=== PATIENT | male | born 1945 | race Caucasian/White ===

== ENCOUNTER 2017-07-21 10:06 | Inpatient (IN) | payer MEDICARE, BC ==
[~2017-07-21] VITALS: Ht 182.9 cm; Wt 68.9 kg
[~2017-07-21 10:06] MED LIST: ASPI-605 PO; LEVE750T4 PO
--- NOTE | 2017-07-21 10:20 | NUR ---
PT CAME IN FOR FEVER SINCE YESTERDAY-- AFEBRILE AT THIS TIME. NAD NOTED. PT AAOX3. VSS. SAFETY AND COMFORT MEASURES PROVIDED. WILL MONITOR.
[2017-07-21] MEDS: IV NS 0.9% 500 ML BAG IV ONE (11:15)
[2017-07-21 11:19] LABS: BASOPHILS # (AUTO) 0.1 /CMM (0.0-0.2); BASOPHILS % (AUTO) 1.2 % (0.0-2.0); HEMATOCRIT 41 % (39-51); HEMOGLOBIN 13.7 g/dL (13.5-17.5); LYMPHOCYTES # (AUTO) 0.5 /CMM (0.8-4.8); LYMPHOCYTES % (AUTO) 7.4 % (20.0-44.0); MEAN CORPUSCULAR HEMOGLOBIN 31 PG (26.0-33.0); MEAN CORPUSCULAR HGB CONC 33 g/dl (31.0-36.0); MEAN CORPUSCULAR VOLUME 94 fL (80-96); MONOCYTES # (AUTO) 0.5 /CMM (0.1-1.30); MONOCYTES % (AUTO) 7.2 % (2.0-12.0); NEUTROPHILS # (AUTO) 5.8 /CMM (1.8-8.9); NEUTROPHILS % (AUTO) 84.2 % (43.0-81.0); PLATELET COUNT (AUTO) 148 /CMM (150-450); RDW COEFFICIENT OF VARIATION 13.4 (11.5-15.0); RED BLOOD CELL COUNT(AUTO) 4.38 MIL/uL (4.5-6.0); WHITE BLOOD COUNT (AUTO) 6.9 K/uL (4.3-11.0)
[2017-07-21 11:21] LABS: APPEARANCE,URINE Slightly Cloudy (CLEAR); BILIRUBIN,URINE SMALL (NEGATIVE); BLOOD, URINE Small Ery/uL (NEGATIVE); KETONES,URINE Trace (NEGATIVE); LEUKOCYTE ESTERASE ,URINE Negative (NEGATIVE); NITRITE, URINE Negative (NEGATIVE); PROTEIN,URINE >=300 mg/dl (NEGATIVE); UGLUCOSE Negative (NEGATIVE)
[2017-07-21 11:22] LABS: COLOR,URINE Dark Yellow (YELLOW)
--- NOTE | 2017-07-21 11:22 | NUR ---
IV ACCESS STARTED. BLOOD DRAWN FOR LABS. PT MEDICATED ORDERED.
[2017-07-21 11:30] LABS: BACTERIA,URINE None seen /HPF (None Seen); SQUAMOUS EPITHELIAL CELL,UR Few /HPF (None Seen)
[2017-07-21 11:31] LABS: INR 1.08 (0.87-1.13); PROTHROMBIN TIME 11.2 SECS (9.5-12.7)
[2017-07-21 11:31] LABS: HYALINE CASTS, URINE Few /LPF (None Seen); MUCUS,URINE Few /LPF (None Seen)
[2017-07-21 11:35] LABS: ALANINE AMINOTRANSFERASE 23 U/L (12-78); ALBUMIN 3.1 g/dL (3.4-5.0); ALKALINE PHOSPHATASE 114 U/L (46-116); ASPARTATE AMINOTRANSFERASE 69 U/L (15-37); BILIRUBIN,DIRECT 0.1 mg/dL (0.0-0.2); BILIRUBIN,TOTAL 0.4 mg/dL (0.2-1.0); CALCIUM, SERUM 8.4 mg/dL (8.5-10.1); CARBON DIOXIDE 26 mmol/L (21-32); CHLORIDE 103 mmol/L (98-107); CREATININE 1.2 mg/dL (0.6-1.3); GLUCOSE 128 mg/dL (74-106); POTASSIUM 3.9 mmol/L (3.5-5.1); SODIUM SERUM 137 mmol/L (136-145); TOTAL PROTEIN, SERUM 6.8 g/dL (6.4-8.2); UREA NITROGEN, BLOOD 25 mg/dL (7-18)
[2017-07-21 11:37] LABS: TROPONIN I < 0.017 ng/mL (0.00-0.056)
--- NOTE | 2017-07-21 11:43 | NUR ---
CALLED DR COLON ANSWER SERVICE, ON THE PHONE WITH DR CELESTIN
--- NOTE | 2017-07-21 11:45 | NUR ---
DR MELINDA COLON
--- NOTE | 2017-07-21 12:37 | NUR ---
AT FOR POC.
[2017-07-21] MEDS ORDERED: IV NS 0.9% 500 ML BAG IV ONE (13:00)
--- NOTE | 2017-07-21 13:58 | NUR ---
CALLED [employer] CRISIS WORKER WAS PAGED.
[2017-07-21] MEDS ORDERED: CEFEPIME 1 GM VIAL IV ONE (14:00)
--- NOTE | 2017-07-21 14:21 | NUR ---
MRSA SWAB COLLECTED & SENT TO LAB
--- NOTE | 2017-07-21 14:27 | NUR ---
REPORT GIVEN TO CAROL THAYER FOR TELE 120.
[2017-07-21] MEDS ORDERED: ONDANSETRON HCL/PF 4 MG/2 ML VIAL IVP PRN (14:30)
[2017-07-21] MEDS ORDERED: MAGNESIUM HYDROXIDE 30 ML UDC PO PRN (14:30)
[2017-07-21] MEDS ORDERED: ZOLPIDEM TARTRATE 5 MG TABLET PO PRN (14:30)
[2017-07-21] MEDS ORDERED: Z GUARD REMEDY 2 OZ OINT TP PRN (14:30)
[2017-07-21] MEDS ORDERED: ACETAMINOPHEN 325 MG TABLET PO PRN (14:30)
[2017-07-21] MEDS ORDERED: MAG HYDROX/AL HYDROX/SIMETH 30 ML UDC PO PRN (14:30)
[2017-07-21] MEDS ORDERED: HYDROCODONE/APAP 5/325MG 1 EACH TABLET PO PRN (14:30)
[2017-07-21 14:45] VITALS: BP 121/61
--- NOTE | 2017-07-21 14:45 | NUR ---
RN NOTES RECEIVED PT ON BED, A/Ox4, RESPIRATION EVEN AND UNLABORED, ON RA , NO SOB NOTED, LON ANY DISTRESS AT THIS TIME, T =97.9, ON TELE SR WITH PAC'S ,VSS STABLE, NO SKIN ISSUE NOTED, L HAND IV SITE #20 CDI, SR UP x3, CALL LIGHT WITHIN EASY REACH. CONTINUE TO MONITOR PT CLOSELY AND NOTIFY MD FOR ANY SIGNIFICANT CHANGES.
[2017-07-21] MEDS ORDERED: DABR75CA PO (14:46)
[2017-07-21] MEDS ORDERED: TRAM2TAB PO ×2 (14:46→16:09)
[2017-07-21] MEDS ORDERED: CEFEPIME 2 GM in IV D5W 100 ML IV ONE (15:00)
[2017-07-21] MEDS: IV NS 0.9% 1,000 ML IV PRN (15:42)
[2017-07-21 16:00] VITALS: BP 121/61
--- NOTE | 2017-07-21 16:06 | NUR ---
RN NOTES PT HOME MEDS TAKEN TO PHARMACY .
[2017-07-21] MEDS ORDERED: TRAMETINIB DIMETHYL SULFOXIDE 2 MG PO SCH (17:00)
[2017-07-21] MEDS ORDERED: DABRAFENIB PO SCH (17:00)
[2017-07-21] MEDS: DABRAFENIB PO SCH (17:37)
--- NOTE | 2017-07-21 18:41 | NUR ---
RN NOTES PT REMAINS STABLE, LON ANY DISTRESS, WILL ENDORSE TO FISHER DIVING RN FOR CONTINUITY OF CARE .
[2017-07-21] MEDS: LEVETIRACETAM (250 MG) 250 MG TABLET PO SCH (19:27)
[2017-07-21 20:00] VITALS: BP 131/47
[2017-07-21] MEDS ORDERED: CEFEPIME 1 GM VIAL IM SCH (21:00)
[2017-07-21] MEDS: MEKINIST 2 MG PO SCH (22:35)
[2017-07-22] VITALS (7 sets, daily range): BP systolic 128–138; BP diastolic 61–82
[2017-07-22] MEDS: DABRAFENIB PO SCH ×2 (04:03→16:30)
[2017-07-22] MEDS: IV NS 0.9% 1,000 ML IV PRN (06:32)
--- NOTE | 2017-07-22 06:39 | NUR ---
RN NOTES 0630 No signs of distress during the shift. Ambulates to BR ad savita. Continue on IVF. Due meds tolerated well. Seizure precaution observed. No seizure activity this shift. Voiding well with BM x 2 this shift. Call light within reach
--- NOTE | 2017-07-22 07:00 | NUR ---
RN NOTES RECEIVED PT ON BED, A/Ox4, RESPIRATION EVEN AND UNLABORED, NO DISTRESS NOTED, ON TELE SR , PT OUT OF BED TO BR WITHOUT ANY ASSIST , L HAND IV G 20 SITE CDI WITH NS AT 75CC/HR RUNNING , CALL LIGHT WITHIN EASY REACH, CONTINUE TO MONITOR PT CLOSELY AND NOTIFY MD FOR ANY SIGNIFICANT CHANGES.
[2017-07-22 07:20] LABS: BASOPHILS % (AUTO) 0.8 % (0.0-2.0); EOSINOPHILS % (AUTO) 0.4 % (0.0-6.0); HEMATOCRIT 33 % (39-51); HEMOGLOBIN 11.2 g/dL (13.5-17.5); LYMPHOCYTES # (AUTO) 1.4 /CMM (0.8-4.8); LYMPHOCYTES % (AUTO) 34.2 % (20.0-44.0); MEAN CORPUSCULAR HEMOGLOBIN 32 PG (26.0-33.0); MEAN CORPUSCULAR HGB CONC 34 g/dl (31.0-36.0); MEAN CORPUSCULAR VOLUME 94 fL (80-96); MONOCYTES # (AUTO) 0.5 /CMM (0.1-1.30); MONOCYTES % (AUTO) 13.2 % (2.0-12.0); NEUTROPHILS # (AUTO) 2.1 /CMM (1.8-8.9); NEUTROPHILS % (AUTO) 51.4 % (43.0-81.0); PLATELET COUNT (AUTO) 119 /CMM (150-450); RDW COEFFICIENT OF VARIATION 14.7 (11.5-15.0); RED BLOOD CELL COUNT(AUTO) 3.53 MIL/uL (4.5-6.0); WHITE BLOOD COUNT (AUTO) 4.2 K/uL (4.3-11.0)
[2017-07-22] MEDS: PANTOPRAZOLE 40 MG TABLET.DR PO SCH (07:44)
[2017-07-22] MEDS: LEVETIRACETAM (250 MG) 250 MG TABLET PO SCH ×2 (07:44→19:54)
[2017-07-22 08:02] LABS: CALCIUM, SERUM 7.9 mg/dL (8.5-10.1); CARBON DIOXIDE 25 mmol/L (21-32); CHLORIDE 110 mmol/L (98-107); CREATININE 0.9 mg/dL (0.6-1.3); GLUCOSE 99 mg/dL (74-106); MAGNESIUM 1.8 mg/dL (1.8-2.4); PHOSPHORUS 2.7 mg/dL (2.5-4.9); POTASSIUM 3.9 mmol/L (3.5-5.1); SODIUM SERUM 143 mmol/L (136-145); UREA NITROGEN, BLOOD 19 mg/dL (7-18)
[2017-07-22] MEDS ORDERED: CEFEPIME 1 GM in IV D5W 50 ML IV SCH (15:00)
--- NOTE | 2017-07-22 16:30 | NUR ---
RN NOTES PT STATED TOOK HIS OWN TAFINLAR FROM HOME . ADVISE PT NOT TO TAKE ANY MEDS FROM HOME ON HIS OWN . PT AND HIS VERBALIZED UNDERSTANDING .
--- NOTE | 2017-07-22 16:50 | NUR ---
RN NOTES DR CRUZ PAGED REGARDING PROCALCITONIN RESULTS .
--- NOTE | 2017-07-22 18:00 | NUR ---
RN NOTES PT STABLE , OUT OF BED TO BATHROOM , NS AT 75CC/HR RUNNING VIA L HAND IV SITE, CALL LIGHT WITHIN EASY REACH, WILL ENDORSE TO SYSTEM ENGINEER NURSE FOR CONTINUITY OF CARE
--- NOTE | 2017-07-22 19:25 | NUR ---
EXERCISE PHYSIOLOGIST CERTIFIED INITIAL NOTE PT RECEIVED IN NO ACUTE DISTRESS. ON TELE WITH SR 81. A/O X4 ABLE TO MAKE NEEDS KNOWN AND ABLE TO AMBULATE TO THE BATHROOM. PT HAS LEFT HAND 20G THAT IS LEAKING SO PAUSED FLUIDS FOR NOW. WILL START NEW LINE. COMFORT AND SAFETY MEASURES TO BE ENSURED DURING THE SHIFT. WILL CONTINUE TO MONITOR FOR CHANGES.
[2017-07-22] MEDS: MEKINIST 2 MG PO SCH (21:34)
[2017-07-23] VITALS: BP 140/84
[2017-07-23 00:52] VITALS: BP 140/84
[2017-07-23 04:00] VITALS: BP 148/81
[2017-07-23] MEDS: DABRAFENIB PO SCH (04:22)
[2017-07-23 04:30] VITALS: BP 148/81
[2017-07-23] MEDS: IV NS 0.9% 1,000 ML IV PRN (05:55)
[2017-07-23 07:05] LABS: BASOPHILS # (AUTO) 0.1 /CMM (0.0-0.2); BASOPHILS % (AUTO) 1.3 % (0.0-2.0); EOSINOPHILS # (AUTO) 0.1 /CMM (0.0-0.7); EOSINOPHILS % (AUTO) 1.6 % (0.0-6.0); HEMATOCRIT 37 % (39-51); HEMOGLOBIN 12.5 g/dL (13.5-17.5); LYMPHOCYTES # (AUTO) 1.9 /CMM (0.8-4.8); LYMPHOCYTES % (AUTO) 46.6 % (20.0-44.0); MEAN CORPUSCULAR HEMOGLOBIN 32 PG (26.0-33.0); MEAN CORPUSCULAR HGB CONC 34 g/dl (31.0-36.0); MEAN CORPUSCULAR VOLUME 94 fL (80-96); MONOCYTES # (AUTO) 0.6 /CMM (0.1-1.30); MONOCYTES % (AUTO) 15.3 % (2.0-12.0); NEUTROPHILS # (AUTO) 1.4 /CMM (1.8-8.9); NEUTROPHILS % (AUTO) 35.2 % (43.0-81.0); PLATELET COUNT (AUTO) 129 /CMM (150-450); RDW COEFFICIENT OF VARIATION 14.4 (11.5-15.0); RED BLOOD CELL COUNT(AUTO) 3.96 MIL/uL (4.5-6.0)
[2017-07-23 07:10] LABS: THYROID STIMULATING HORMONE 2.497 uIU/mL (0.358-3.74)
--- NOTE | 2017-07-23 07:30 | NUR ---
PT RECEIVED RESTING COMFORTABLY IN BED. NO S/S OR C/O PAIN OR DISTRESS NOTED. SIDE RAILS UP X2, CALL LIGHT LEFT WITHIN REACH. WILL CONTINUE PLAN OF CARE.
[2017-07-23 08:00] VITALS: BP 146/62
[2017-07-23] MEDS: LEVETIRACETAM (250 MG) 250 MG TABLET PO SCH (08:18)
[2017-07-23] MEDS: PANTOPRAZOLE 40 MG TABLET.DR PO SCH (08:18)
[2017-07-23 10:02] LABS: BAND % (MANUAL) 2 % (0.0-5.0); EOSINOPHILS % (MANUAL) 1 % (0-4); LYMPHOCYTES % (MANUAL) 49 % (16-48); MONOCYTES % (MANUAL) 11 % (0-11.0); NEUTROPHILS % (MANUAL) 37 (42-76)
--- NOTE | 2017-07-23 13:00 | NUR ---
DISCHARGE INSTRUCTIONS GIVEN ORDERED. ENCOURAGED TO FOLLOW UP WITH PMD INSTRUCTED. ALL QUESTIONS AND CONCERNS ADDRESSED. PATIENT VERBALIZED UNDERSTANDING. MEDICATION RECONCILIATION FORM COMPLETED AND COPY GIVEN TO PATIENT. HOME MEDICATIONS HELD IN PHARMACY RETURNED TO PATIENT. IV REMOVED WITH CATHETER INTACT, PRESSURE DRESSING APPLIED. PATIENT TAKEN TO VEHICLE VIA WHEELCHAIR WITH ALL PERSONAL BELONGINGS, ACCOMPANIED BY STAFF AND FAMILY MEMBER. NO DISTRESS NOTED AT TIME OF DEPARTURE.
== END 2017-07-23 13:16 | disposition home or self-care (01) | DRG 640 ==
LOC: ER 10:08 → TELE1 14:17 → MEDSG1 07-23 09:04
PROVIDERS: ADMIT Internal Medicine; ATTEND Internal Medicine
DX: E86.0 Dehydration (principal); D61.810 Antineoplastic chemotherapy induced pancytopenia; R65.10 Systemic inflammatory response syndrome (SIRS) of non-infectious origin without acute organ dysfunction; C78.89 Secondary malignant neoplasm of other digestive organs; G40.909 Epilepsy, unspecified, not intractable, without status epilepticus; I10 Essential (primary) hypertension; K21.9 Gastro-esophageal reflux disease without esophagitis; E78.5 Hyperlipidemia, unspecified; Z85.820 Personal history of malignant melanoma of skin; T45.1X5A Adverse effect of antineoplastic and immunosuppressive drugs, initial encounter; Y92.009 Unspecified place in unspecified non-institutional (private) residence as the place of occurrence of the external cause; Z79.899 Other long term (current) drug therapy
CPT/HCPCS: 36415; 71010-TC; 80048-TC; 80076-TC; 81000-TC; 82746; 83540-TC; 83605-TC; 83735-TC; 84100-TC; 84439-TC; 84443-TC; 84484-TC; 85025-TC; 85730-TC; 87040-TC; 87081-TC; A4606; J0692; J7030; J7040; J7060; Z7610

== ENCOUNTER 2018-04-21 09:42 | Inpatient (IN) | payer MEDICARE, BC ==
[~2018-04-21] VITALS: Ht 165.1 cm; Wt 83.9 kg
[~2018-04-21 09:42] MED LIST changes: -ASPI-605 PO; +DABR75CA PO; +TRAM2TAB PO
--- NOTE | 2018-04-21 09:45 | NUR ---
[id number] FROM HOME S/P SLIPPED AND FELL WHILE GOING DOWN THE STAIRS, +HEAD LAC, NO KO. A/OX 4, BREATHING EVEN AND UNLABORED. HEAD WRAPPED WITH GAUZE WITH MODERATE AMOUNT OF BLEEDING NOTED. NO TRAUMA, VSS. SAFETY AND COMFORT MEASURES IN PLACE. AWAITING MD ORDERS.
[2018-04-21] MEDS ORDERED: TDAP [DIPH/PERTUSSIS/TET] 0.5 ML VIAL IM ONE ×2 (09:59→10:00)
--- NOTE | 2018-04-21 10:04 | NUR ---
patient taken to ct via stretcher.
--- NOTE | 2018-04-21 10:13 | NUR ---
PATIENT RETURNED FROM CT IN STABLE CONDITION.
--- NOTE | 2018-04-21 10:20 | NUR ---
process development technician at bedside.
[2018-04-21 10:33] LABS: BASOPHILS # (AUTO) 0.1 /CMM (0.0-0.2); BASOPHILS % (AUTO) 1.3 % (0.0-2.0); EOSINOPHILS % (AUTO) 0.6 % (0.0-6.0); HEMATOCRIT 35 % (39-51); HEMOGLOBIN 12.2 g/dL (13.5-17.5); LYMPHOCYTES # (AUTO) 0.7 /CMM (0.8-4.8); LYMPHOCYTES % (AUTO) 16.6 % (20.0-44.0); MEAN CORPUSCULAR HGB CONC 35 g/dl (31.0-36.0); MEAN CORPUSCULAR VOLUME 96 fL (80-96); MONOCYTES # (AUTO) 0.4 /CMM (0.1-1.30); MONOCYTES % (AUTO) 8.3 % (2.0-12.0); NEUTROPHILS # (AUTO) 3.2 /CMM (1.8-8.9); NEUTROPHILS % (AUTO) 73.2 % (43.0-81.0); PLATELET COUNT (AUTO) 218 /CMM (150-450); RDW COEFFICIENT OF VARIATION 12.9 (11.5-15.0); RED BLOOD CELL COUNT(AUTO) 3.66 MIL/uL (4.5-6.0); WHITE BLOOD COUNT (AUTO) 4.4 K/uL (4.3-11.0)
[2018-04-21 10:42] LABS: CALCIUM, SERUM 9.1 mg/dL (8.5-10.1); CARBON DIOXIDE 27 mmol/L (21-32); CHLORIDE 108 mmol/L (98-107); CREATININE 0.8 mg/dL (0.6-1.3); GLUCOSE 122 mg/dL (74-106); POTASSIUM 3.8 mmol/L (3.5-5.1); SODIUM SERUM 141 mmol/L (136-145); UREA NITROGEN, BLOOD 22 mg/dL (7-18)
[2018-04-21 10:46] LABS: INR 1.07 (0.85-1.15)
--- NOTE | 2018-04-21 10:52 | NUR ---
patient taken back to ct via stretcher.
--- NOTE | 2018-04-21 11:00 | NUR ---
PATIENT RETURNED FROM CT IN STABLE CONDITION.
[2018-04-21] MEDS ORDERED: LIDOCAINE 1%-EPI 1:100,000 50 ML VIAL IJ ONE (11:30)
[2018-04-21] MEDS ORDERED: ONDANSETRON HCL/PF - ER 4 MG/2 ML VIAL IV ONE (11:30)
[2018-04-21] MEDS ORDERED: LIDOCAINE 1%-EPI 1:100,000 20 ML VIAL ONE (11:30)
[2018-04-21] MEDS ORDERED: MORPHINE SULFATE INJ 2 MG/ML DISP.SYRIN IV ONE ×2 (11:30→12:30)
[2018-04-21] MEDS ORDERED: MORPHINE SULFATE INJ 4 MG/ML DISP.SYRIN ONE (11:33)
[2018-04-21] MEDS ORDERED: ONDANSETRON HCL/PF 4 MG/2 ML VIAL ONE (11:33)
--- NOTE | 2018-04-21 11:40 | NUR ---
NEW IV STARTED ON LFA, 20G. PATIENT MEDICATED PER MD ORDERS.
--- NOTE | 2018-04-21 11:41 | NUR ---
CALLED LILLIE NOBLES, WEB COMMUNICATIONS SPECIALIST WAS PAGED.
--- NOTE | 2018-04-21 11:47 | NUR ---
CALLED [employer] FACILITIES MAINTENANCE TECHNICIAN WAS PAGED.
--- NOTE | 2018-04-21 11:50 | NUR ---
PA AT BEDSIDE FOR FLORINA TO RIGHT SIDED HEAD LAC.
--- NOTE | 2018-04-21 12:01 | NUR ---
CALLED DR WESLEY'S OFFICE, WAS PAGED.
[2018-04-21] MEDS ORDERED: LISI30TA4 PO (12:15)
--- NOTE | 2018-04-21 12:25 | NUR ---
CALLED [facility] SPOKE WITH SHILPI, HE SAID HE IS WORKING ON A LIFE THREATNING CASE AND WILL CALL ME BACK.
[2018-04-21] MEDS ORDERED: HYDROMORPHONE INJ 2 MG/ML DISP.SYRIN ONE (12:49)
[2018-04-21] MEDS ORDERED: HYDROMORPHONE 1 MG/1 ML DISP.SYRIN IV ONE (13:00)
--- NOTE | 2018-04-21 13:41 | NUR ---
CALLED [facility], SPOKE WITH SHILPI HE SAID HE IS STILL TIED UP WITH THE LIFE THREATNING CASE AND WILL CALL ME BACK WHEN HE IS AVAILABLE. HE ALSO MENTIONED HE SPOKE TO DR WESLEY REGARDING THE TX.
--- NOTE | 2018-04-21 14:19 | NUR ---
SHILPI FROM [facility] CALLED BACK, FAXED OVER A FACESHEET.
--- NOTE | 2018-04-21 16:45 | NUR ---
CALLED [facility] SPOKE WITH SHILPI, HE SAID THEY DONT HAVE ANY BEDS ABAILABLE.
--- NOTE | 2018-04-21 16:50 | NUR ---
CALLED [employer]ON SIGN WORKER WAS PAGED.
--- NOTE | 2018-04-21 17:28 | NUR ---
INFORMED HINA YAP FROM CASE MANAGEMENT TO FOLLOW THROUGH WITH TRANSFER TO [facility] EVEN THOUGH WE ARE ADMITTING PATIENT AT THIS TIME
--- NOTE | 2018-04-21 18:02 | NUR ---
16 FR horn catheter inserted per sterile protocOl. Immediate output 850 ML of urine, yellow and clear.
--- NOTE | 2018-04-21 18:29 | NUR ---
REPORT GIVEN TO PEDRO THAYER FOR RENETTA UPON ADMISSION.
--- NOTE | 2018-04-21 18:36 | NUR ---
PATIENT TRANSPORTED TO [facility] VIA STRETCHER. RNPEDRO TO PROVIDE RENETTA.
--- NOTE | 2018-04-21 19:35 | NUR ---
MS RN INITIAL NOTE PT WAS ADMITTED TO THE FLOOR AT 1850. PT IS A/O X3, FORGETFUL AT TIMES. NO SIGNS OF SOB OR DISTRESS, BREATHING EVENLY AND UNLABORED ON 2L NC. PT IS S/P FALL, HAS A HEAD LACERATION WITH FLORINA AND PT HIP FRACTURE. ONLY BRUISING NOTED ON RIGHT HIP AND PT HAS PAIN ON MOVEMENT. F/C IS INTACT AND DRAINING. IV ACCESS IS INTACT AND PATENT. BED IS IN LOW AND LOCKED POSITION, BED ALARM IS ON. CALL LIGHT IS WITHIN REACH. WILL CONTINUE TO MONITOR PT.
[2018-04-21 20:00] VITALS: BP 134/76
[2018-04-21] MEDS ORDERED: ACETAMINOPHEN 325 MG TABLET PO PRN (20:30)
[2018-04-21] MEDS ORDERED: Z GUARD REMEDY 2 OZ OINT TP PRN (20:30)
[2018-04-21] MEDS ORDERED: HYDROMORPHONE INJ 2 MG/ML DISP.SYRIN IV PRN (20:30)
[2018-04-21] MEDS ORDERED: MAG HYDROX/AL HYDROX/SIMETH 30 ML UDC PO PRN (20:30)
[2018-04-21] MEDS ORDERED: ONDANSETRON HCL/PF 4 MG/2 ML VIAL IVP PRN (20:30)
[2018-04-21] MEDS ORDERED: MAGNESIUM HYDROXIDE 30 ML UDC PO PRN (20:30)
[2018-04-21] MEDS ORDERED: HYDROCODONE/APAP 5/325MG 1 EACH TABLET PO PRN (20:30)
[2018-04-21] MEDS ORDERED: ZOLPIDEM TARTRATE 5 MG TABLET PO PRN (20:30)
[2018-04-21 21:00] VITALS: BP 134/76
[2018-04-21] MEDS: LEVETIRACETAM (250 MG) 250 MG TABLET PO SCH (21:25)
--- NOTE | 2018-04-22 06:18 | NUR ---
MS RN CLOSING NOTE PT IS IN BED SLEEPING, EASILY AROUSED. NO SIGNS OF SOB OR DISTRESS, BREATHING EVENLY AND UNLABORED ON 2L NC. IV ACCESS IS INTACT AND PATENT. RIVERA IS INTACT AND DRAINING. DENIES PAIN AT THIS TIME. NO ACUTE CHANGES THROUGHOUT THE SHIFT. ALL NEEDS WERE ANTICIPATED AND MET. BED IS IN LOW AND LOCKED POSITION, CALL LIGHT WITHIN REACH. WILL ENDORSE TO DAYSHIFT
[2018-04-22 07:27] LABS: BASOPHILS % (AUTO) 0.4 % (0.0-2.0); EOSINOPHILS % (AUTO) 0.7 % (0.0-6.0); HEMATOCRIT 34 % (39-51); HEMOGLOBIN 11.4 g/dL (13.5-17.5); LYMPHOCYTES # (AUTO) 0.6 /CMM (0.8-4.8); LYMPHOCYTES % (AUTO) 8.4 % (20.0-44.0); MEAN CORPUSCULAR HGB CONC 34 g/dl (31.0-36.0); MEAN CORPUSCULAR VOLUME 99 fL (80-96); MONOCYTES # (AUTO) 0.8 /CMM (0.1-1.30); MONOCYTES % (AUTO) 11.4 % (2.0-12.0); NEUTROPHILS # (AUTO) 5.5 /CMM (1.8-8.9); NEUTROPHILS % (AUTO) 79.1 % (43.0-81.0); PLATELET COUNT (AUTO) 161 /CMM (150-450); RDW COEFFICIENT OF VARIATION 14.1 (11.5-15.0); RED BLOOD CELL COUNT(AUTO) 3.39 MIL/uL (4.5-6.0); WHITE BLOOD COUNT (AUTO) 6.9 K/uL (4.3-11.0)
--- NOTE | 2018-04-22 07:30 | NUR ---
RN MS OPENING NOTES RECEIVED PATIENT IN BED AWAKE, IN STABLE CONDITION. ALERT AND ORIENTED X2-3, VERBALLY RESPONSIVE, ABLE TO MAKE NEEDS KNOWN. BREATHING EVEN AND UNLABORED. ON ROOM AIR - TOLERATING WELL. SKIN DRY AND WARM TO TOUCH. IV ON LEFT FA #22 INTACT AND PATENT. RIVERA CATH INTACT AND DRAINING WELL. CURRENTLY WITH COMPLAINTS OF PAIN ON THE RIGHT HIP, 4/10, BUT DOES NOT NEED PAIN MEDICATION AT THE MOMENT. CALL LIGHT WITHIN REACH. BED ON LOWEST LOCKED POSITION. WILL CONTINUE TO MONITOR.
[2018-04-22 07:32] LABS: ALANINE AMINOTRANSFERASE 27 U/L (12-78); ALBUMIN 3.4 g/dL (3.4-5.0); ALKALINE PHOSPHATASE 87 U/L (46-116); ASPARTATE AMINOTRANSFERASE 23 U/L (15-37); BILIRUBIN,TOTAL 1.3 mg/dL (0.2-1.0); CALCIUM, SERUM 8.2 mg/dL (8.5-10.1); CARBON DIOXIDE 25 mmol/L (21-32); CHLORIDE 103 mmol/L (98-107); CHOLESTEROL 138 mg/dL (<200); CREATININE 0.8 mg/dL (0.6-1.3); GLUCOSE 113 mg/dL (74-106); HDL CHOLESTEROL 67 mg/dL (40-60); LDL 70 mg/dL (0-99); PHOSPHORUS 3.2 mg/dL (2.5-4.9); POTASSIUM 3.9 mmol/L (3.5-5.1); SODIUM SERUM 137 mmol/L (136-145); TOTAL PROTEIN, SERUM 6.5 g/dL (6.4-8.2); TRIGLYCERIDES 24 mg/dL (30-150); UREA NITROGEN, BLOOD 18 mg/dL (7-18)
[2018-04-22 08:00] VITALS: BP 134/65
[2018-04-22] MEDS ORDERED: LISINOPRIL (10MG) 10 MG TABLET PO SCH (09:00)
[2018-04-22] MEDS: LEVETIRACETAM (250 MG) 250 MG TABLET PO SCH (09:49)
[2018-04-22 16:00] VITALS: BP 118/63
--- NOTE | 2018-04-22 19:08 | NUR ---
RN MS NOTES PT IN BED, AWAKE, ALERT AND ORIENTED, NO BLEEDING NOTED AT SCALP LACERATION, FLORINA INTACT, SAID HE HAS PAIN ON HIS RIGHT HIP ON MOVEMENT BUT DOES NOT WANT ANY PAIN MEDICATION AT THIS TIME, DISCHARGE INSTRUCTIONS PROVIDED TO PT, VERBALIZED UNDERSTANDING, REPORT GIVEN TO SHASHI OF [facility], PT'S KATHY INFORMED OF TRANSFER, BELONGINGS ACCOUNTED FOR, AWAITING AMBULANCE PORT CAPTAIN.
--- NOTE | 2018-04-22 19:09 | NUR ---
RN MS CLOSING NOTES PATIENT IN BED AWAKE, IN STABLE CONDITION. ALERT AND ORIENTED X2-3, VERBALLY RESPONSIVE, ABLE TO MAKE NEEDS KNOWN. BREATHING EVEN AND UNLABORED. ON ROOM AIR - TOLERATING WELL. SKIN DRY AND WARM TO TOUCH. IV ON LEFT FA #22 INTACT AND PATENT. RIVERA CATH INTACT AND DRAINING WELL. CURRENTLY WITH NO COMPLAINTS OF PAIN OR DISCOMFORT. PATIENT FOR TRANSFER TO [facility] FOR RIGHT HIP SURGERY. PATIENT AND MADE AWARE. ANTICIPATED MOTORCYCLE REPAIR SHOP SUPERVISOR TIME IS 8:00PM. ALL OTHER NEEDS ATTENDED TO. CALL LIGHT WITHIN REACH. BED ON LOWEST LOCKED POSITION. WILL ENDORSE TO ONCOMING NURSE FOR CONTINUITY OF CARE.
[2018-04-22 19:30] VITALS: BP 149/72
--- NOTE | 2018-04-22 19:30 | NUR ---
RN NOTES RECEIVED PATIENT IN BED AWAKE, AO X 2-3, FORGETFUL, ABLE TO MAKE NEEDS KNOWN. NO ACUTE DISTRESS NOTED. DENIES ANY PAIN AT THIS TIME. IV SITE PATENT, INTACT; FLUSHED. RIVERA CATH PATENT, INTACT; DRAINING CLEAR YELLOW URINE. HIP PRECAUTIONS MAINTAINED. SAFETY REMINDERS GIVEN. ON LOW BED WITH BILATERAL UPPER SIDE RAILS UP. CALL WEEKS WITHIN EASY REACH. WILL CONTINUE TO MONITOR.
--- NOTE | 2018-04-22 20:37 | NUR ---
RN NOTES PATIENT PICKED UP BY [facility] FOR TRANSFER TO [facility]. PATIENT AWARE OF TRANSFER. PATIENT IN STABLE CONDITION; DENIES ANY PAIN AT THIS TIME. BELONGING PACKED AND GIVEN TO PATIENT. DISCHARGE PAPERS AND REPORT GIVEN TO AMBULANCE STAFF.
== END 2018-04-22 20:37 | disposition short-term general hospital (02) | DRG 536 ==
LOC: ER 09:42 → MED 18:17
PROVIDERS: ADMIT Internal Medicine; ATTEND Internal Medicine
DX: S72.001A Fracture of unspecified part of neck of right femur, initial encounter for closed fracture (principal); C79.9 Secondary malignant neoplasm of unspecified site; W01.0XXA Fall on same level from slipping, tripping and stumbling without subsequent striking against object, initial encounter; C43.9 Malignant melanoma of skin, unspecified; K21.9 Gastro-esophageal reflux disease without esophagitis; Y92.89 Other specified places as the place of occurrence of the external cause; D63.8 Anemia in other chronic diseases classified elsewhere; I10 Essential (primary) hypertension; E78.5 Hyperlipidemia, unspecified; Z79.899 Other long term (current) drug therapy; Y93.9 Activity, unspecified; R56.9 Unspecified convulsions; S72.124A Nondisplaced fracture of lesser trochanter of right femur, initial encounter for closed fracture; S01.01XA Laceration without foreign body of scalp, initial encounter
CPT/HCPCS: 36415; 70450-TC; 71045-TC; 72170-TC; 73700-TC; 80048-TC; 80053-TC; 80061-TC; 83735-TC; 84100-TC; 84484-TC; 85025-TC; 85730-TC; 87081-TC; 90715; 93307-TC; A4606; A6402; J1170; J2270; J2405; J3490; Z7610

== ENCOUNTER 2019-01-24 15:31 | Inpatient (IN) | payer MEDICARE, BC ==
[~2019-01-24] VITALS: Ht 180.3 cm; Wt 71.7 kg
[~2019-01-24 15:31] MED LIST changes: -DABR75CA PO; +LISI30TA4 PO; -TRAM2TAB PO
--- NOTE | 2019-01-24 15:45 | NUR ---
PATIENT [id number] FROM HOME FOR GENERALIZED WEAKNESS, PER REPORT HYPOTENSIVE. PATIENT AAO X 3, DENIES ANY PAIN AT THIS TIME. KATHY AT BEDSIDE
--- NOTE | 2019-01-24 15:50 | NUR ---
REJI CATH,R UPPER CW ACCESSED WITH 20 G BUTLER NEEDLE ASEPTICALLY,BLOOD DRAWN FOR LABS. FLUSHED AFTER DRAWING BLOOD.TOLERATED WELL.
[2019-01-24] MEDS ORDERED: IV NS 0.9% 1,000 ML BAG IV ONE (16:00)
--- NOTE | 2019-01-24 16:00 | NUR ---
DR. HAYES AT BEDSIDE
[2019-01-24 16:04] LABS: BASOPHILS # (AUTO) 0.1 /CMM (0.0-0.2); BASOPHILS % (AUTO) 0.4 % (0.0-2.0); HEMATOCRIT 28 % (39-51); HEMOGLOBIN 9.2 g/dL (13.5-17.5); LYMPHOCYTES # (AUTO) 0.6 /CMM (0.8-4.8); LYMPHOCYTES % (AUTO) 2.9 % (20.0-44.0); MEAN CORPUSCULAR HGB CONC 33 g/dl (31.0-36.0); MEAN CORPUSCULAR VOLUME 98 fL (80-96); MONOCYTES # (AUTO) 0.6 /CMM (0.1-1.30); MONOCYTES % (AUTO) 2.8 % (2.0-12.0); NEUTROPHILS # (AUTO) 19.2 /CMM (1.8-8.9); NEUTROPHILS % (AUTO) 93.9 % (43.0-81.0); PLATELET COUNT (AUTO) 264 /CMM (150-450); RED BLOOD CELL COUNT(AUTO) 2.83 MIL/uL (4.5-6.0); WHITE BLOOD COUNT (AUTO) 20.5 K/uL (4.3-11.0)
[2019-01-24] MEDS ORDERED: HYDR2TAB7 PO (16:08)
[2019-01-24] MEDS ORDERED: PRED20TA PO (16:08)
[2019-01-24] MEDS ORDERED: FERR325T23 PO (16:10)
[2019-01-24 16:32] LABS: CALCIUM, SERUM 8.2 mg/dL (8.5-10.1); CARBON DIOXIDE 21 mmol/L (21-32); CHLORIDE 104 mmol/L (98-107); CREATININE 1.4 mg/dL (0.6-1.3); GLUCOSE 90 mg/dL (74-106); POTASSIUM 4.1 mmol/L (3.5-5.1); SODIUM SERUM 136 mmol/L (136-145); UREA NITROGEN, BLOOD 44 mg/dL (7-18)
[2019-01-24 16:45] LABS: ALANINE AMINOTRANSFERASE 171 U/L (12-78); ASPARTATE AMINOTRANSFERASE 176 U/L (15-37); B-TYPE NATRIURETIC PEPTIDE 3130 PG/ML (0-125); BILIRUBIN,DIRECT 8.4 mg/dL (0.0-0.2); BILIRUBIN,TOTAL 9.7 mg/dL (0.2-1.0); TOTAL PROTEIN, SERUM 5.1 g/dL (6.4-8.2)
[2019-01-24 16:48] LABS: ALBUMIN 1.4 g/dL (3.4-5.0)
[2019-01-24 16:52] LABS: BAND % (MANUAL) 17 % (0.0-5.0); LYMPHOCYTES % (MANUAL) 4 % (16-48); MONOCYTES % (MANUAL) 3 % (0-11.0); NEUTROPHILS % (MANUAL) 76 (42-76)
--- NOTE | 2019-01-24 16:58 | NUR ---
ICU BED 256 GIVEN
--- NOTE | 2019-01-24 17:05 | NUR ---
CALLED [facility] FOR TO . COVERING DR IS DR CORREA. ON THE PHONE NOW
[2019-01-24] MEDS ORDERED: VANCOMYCIN 1 GM in IV D5W 250 ML IV ONE (17:30)
[2019-01-24] MEDS ORDERED: MEROPENEM 1 G in IV NS 0.9% 100 ML IV ONE (17:30)
[2019-01-24] MEDS ORDERED: methylPREDNISolone SOD SUCC 125 MG/2ML VIAL IV ONE (17:30)
--- NOTE | 2019-01-24 17:39 | NUR ---
RIVERA CATHETER PLACED Fr 16. TEA-COLORED URINE OUTPUT NOTED. URINE COLLECTED AND SENT TO LAB. SECURED RIVERA CATHETER TO RIGHT THIGH.
[2019-01-24 17:47] LABS: APPEARANCE,URINE Cloudy (CLEAR); BILIRUBIN,URINE LARGE (NEGATIVE); BLOOD, URINE Trace-intact Ery/uL (NEGATIVE); KETONES,URINE Trace (NEGATIVE); LEUKOCYTE ESTERASE ,URINE Negative (NEGATIVE); NITRITE, URINE Negative (NEGATIVE); PH,URINE 5.5 (5.0-8.0); PROTEIN,URINE 100 mg/dl (NEGATIVE); UGLUCOSE 100 MG/DL mg/dL (NEGATIVE)
[2019-01-24 17:49] LABS: COLOR,URINE DARK YELLOW (YELLOW)
[2019-01-24] MEDS ORDERED: methylPREDNISolone SOD SUCC 125 MG/2ML VIAL ONE (18:14)
[2019-01-24 18:23] LABS: ALKALINE PHOSPHATASE 1073 U/L (46-116)
[2019-01-24 18:26] LABS: WBC,URINE 0-2 /HPF (0-3)
[2019-01-24 18:27] LABS: BACTERIA,URINE Few /HPF (None Seen); CALCIUM OXALATE CRYSTALS,UR Moderate /HPF (None Seen)
[2019-01-24 18:28] LABS: HYALINE CASTS, URINE Few /LPF (None Seen); MUCUS,URINE Moderate /LPF (None Seen); SQUAMOUS EPITHELIAL CELL,UR Few /HPF (None Seen)
--- NOTE | 2019-01-24 18:38 | NUR ---
REPORT GIVEN TO MARNIE THAYER
--- NOTE | 2019-01-24 19:00 | NUR ---
PT RECEIVED FROM ER VIA GURSHARAN, PT AWAKE, ALERT , ORIENTED X3, F/C IN PLACE, DRAINING TEA COLOR URINE, PT ON ROOM AIR. NO S/S OF SOB NOTED. IV VANCO STARTED BY HEAD BANDER AND LINER OPERATOR. AT BED SITE.
--- NOTE | 2019-01-24 19:06 | NUR ---
TRANSFERRED PATIENT TO ICU 256-1 VIA ACLS PROTOCOL BY SMITHA IN STABLE CONDITION. NO ACUTE DISTRESS NOTED. NO CHANGES IN LOC NOTED. PATIENT CALM AND RELAXED. DENIES ANY PAIN OR DISCOMFORT. RECEIVING RN AT BEDSIDE
[2019-01-24] MEDS ORDERED: MAG HYDROX/AL HYDROX/SIMETH 30 ML UDC PO PRN (19:30)
[2019-01-24] MEDS ORDERED: MAGNESIUM HYDROXIDE 30 ML UDC PO PRN (19:30)
[2019-01-24] MEDS ORDERED: ONDANSETRON HCL/PF 4 MG/2 ML VIAL IVP PRN (19:30)
[2019-01-24] MEDS ORDERED: Z GUARD REMEDY 2 OZ OINT TP PRN (19:30)
[2019-01-24] MEDS ORDERED: ACETAMINOPHEN 325 MG TABLET PO PRN (19:30)
[2019-01-24] MEDS ORDERED: ZOLPIDEM TARTRATE 5 MG TABLET PO PRN (19:30)
[2019-01-24] MEDS ORDERED: HYDROCODONE/APAP 10/325MG 1 EA TABLET PO PRN (19:30)
[2019-01-24] MEDS: IV NS 0.9% 1,000 ML IV PRN (19:47)
[2019-01-24] MEDS ORDERED: NOREPINEPHRINE 4 MG/4 ML AMPUL IV ONE (19:48)
[2019-01-24 20:00] VITALS: BP 94/36
[2019-01-24] MEDS ORDERED: NOREPINEPHRINE 16 MG in IV D5W 500 ML IV PRN (20:00)
[2019-01-24] MEDS ORDERED: MEROPENEM 1 G VIAL IV ONE (20:22)
[2019-01-24] MEDS: LEVETIRACETAM (250 MG) 250 MG TABLET PO SCH (20:25)
[2019-01-24] MEDS: ENOXAPARIN SODIUM 40 MG/0.4 ML DISP.SYRIN SQ SCH (20:25)
[2019-01-24] MEDS: MEROPENEM 1 G in IV NS 0.9% 100 ML IV SCH (20:26)
[2019-01-24 21:00] VITALS: BP 97/50
[2019-01-24 22:00] VITALS: BP 99/53
[2019-01-24 23:00] VITALS: BP 86/34
[2019-01-25] VITALS (69 sets, daily range): BP systolic 83–148; BP diastolic 37–112
[2019-01-25] MEDS: HYDROCODONE/APAP 5/325MG 1 EACH TABLET PO PRN ×2 (01:36→15:57)
[2019-01-25 05:01] LABS: BASOPHILS # (AUTO) 0.1 /CMM (0.0-0.2); BASOPHILS % (AUTO) 0.2 % (0.0-2.0); HEMATOCRIT 25 % (39-51); HEMOGLOBIN 8.4 g/dL (13.5-17.5); LYMPHOCYTES # (AUTO) 1.5 /CMM (0.8-4.8); LYMPHOCYTES % (AUTO) 6.2 % (20.0-44.0); MEAN CORPUSCULAR HGB CONC 33 g/dl (31.0-36.0); MEAN CORPUSCULAR VOLUME 99 fL (80-96); MONOCYTES # (AUTO) 0.6 /CMM (0.1-1.30); MONOCYTES % (AUTO) 2.5 % (2.0-12.0); NEUTROPHILS # (AUTO) 22.5 /CMM (1.8-8.9); NEUTROPHILS % (AUTO) 91.1 % (43.0-81.0); PLATELET COUNT (AUTO) 252 /CMM (150-450); RED BLOOD CELL COUNT(AUTO) 2.54 MIL/uL (4.5-6.0); WHITE BLOOD COUNT (AUTO) 24.8 K/uL (4.3-11.0)
[2019-01-25 05:22] LABS: B-TYPE NATRIURETIC PEPTIDE 5606 PG/ML (0-125); CALCIUM, SERUM 7.4 mg/dL (8.5-10.1); CARBON DIOXIDE 22 mmol/L (21-32); CHLORIDE 107 mmol/L (98-107); CREATININE 1.1 mg/dL (0.6-1.3); GLUCOSE 124 mg/dL (74-106); MAGNESIUM 2.3 mg/dL (1.8-2.4); PHOSPHORUS 3.5 mg/dL (2.5-4.9); POTASSIUM 4.3 mmol/L (3.5-5.1); SODIUM SERUM 138 mmol/L (136-145); UREA NITROGEN, BLOOD 38 mg/dL (7-18)
[2019-01-25 05:28] LABS: CHOLESTEROL 161 mg/dL (<200); LDL 156 mg/dL (0-99); THYROID STIMULATING HORMONE 0.452 uIU/mL (0.358-3.74); TRIGLYCERIDES 122 mg/dL (30-150)
[2019-01-25] MEDS: IV NS 0.9% 1,000 ML IV PRN ×2 (05:39→18:24)
[2019-01-25 05:40] LABS: HDL CHOLESTEROL < 10 mg/dL (40-60)
--- NOTE | 2019-01-25 06:40 | NUR ---
SBP REMAINS IN 80'S , LEVO TITRATED PER PROTOCOL / ORDER.
--- NOTE | 2019-01-25 07:10 | NUR ---
FLAME CUTTER INITIAL NOTES RECEIVED PT FROM NIGHTSHIFT RN IN STABLE CONDITION. PT A/O X3. NO SOB OR ACUTE SIGNS OF DISTRESS NOTED. HE DENIES ANY PAIN AT THIS TIME. BREATHING IS EVEN AND UNLABORED. PT ON RA AND SATING WELL AT 100%. RIGHT CHEST WALL PORTACTH NOTED TO BE C/D/I. NO REDNESS NOTED. PT TOLERATING NS INFUSION AT 100ML/HR ALONG WITH LEVO DRIP @ 4MIC/MIN WELL. HE IS CURRENTLY AFIB ON THE MONITOR WITH A HR OF 59. RIVERA CATHETER NOTED TO BE BE DRAINING TEA COLORED URINE. BED IN LOW LOCKED POSITION, SIDE RAILS UP X2, CALL LIGHT WITHIN REACH. WILL CONTINUE TO MONITOR
[2019-01-25] MEDS ORDERED: FEE PK DOSING 1 MIN EA MC ONE ×2 (07:38→13:41)
--- NOTE | 2019-01-25 08:04 | NUR ---
WOUND CARE CONSULT: PT PRESENTS WITH SCAR TO RT ELBOW, BLANCHABLE REDNESS TO BILATERAL HEELS AND SACRAL/BUTTOCK AREA AND DRY ABRASIONS TO RT EAR AND JAW AREA, PRESENT ON ADMISSION. RECOMMENDATIONS MADE FOR SKIN PROTECTION. DISCUSSED WITH NURSING STAFF. PT ABLE TO ASSIST WITH TURNING AND REPOSITIONING. PT CONTINENT AT THIS TIME WITH MIGUEL VAUGHN. WILL SEE PRN. CURRENT NANCIE SCORE IS 13. MD IN AGREEMENT WITH PLAN OF CARE. Addendum: 01/25/19 at 0806 by ROSA IVEY WNDNU Amended: Links added.
[2019-01-25] MEDS: LEVETIRACETAM (250 MG) 250 MG TABLET PO SCH ×2 (08:47→21:34)
[2019-01-25] MEDS: FERROUS SULFATE (325 MG) 325 MG/TAB TABLET PO SCH (08:47)
[2019-01-25] MEDS: VANCOMYCIN 0.75 GM in IV D5W 250 ML IV SCH ×2 (08:48→19:48)
[2019-01-25] MEDS: MEROPENEM 1 G in IV NS 0.9% 100 ML IV SCH ×2 (09:53→21:33)
[2019-01-25] MEDS ORDERED: DOSING PER PHARMACY-AMIKACI IV XX PRN (13:00)
[2019-01-25] MEDS ORDERED: DOSE PER PHARMACY MICAFUNGIN 1 EA XX PRN (13:00)
[2019-01-25] MEDS: MICAFUNGIN SODIUM 100 MG in IV NS 0.9% 100 ML IV SCH (14:56)
[2019-01-25] MEDS: AMIKACIN 500 MG in IV D5W 100 ML IV SCH (16:11)
[2019-01-25] MEDS: OSELTAMIVIR PHOSPHATE 75 MG CAPSULE PO SCH (16:28)
--- NOTE | 2019-01-25 18:51 | NUR ---
TRAINMASTER CLOSING NOTES PT REMAINS STABLE. ALL NEEDS ANTICIPATED FOR AND MET DURING SHIFT. ALL DUE MEDS GIVEN A. RIVERA CATHETER REMAINS PATENT AND INTACT. . PT TOLERATING LEVO AT 4 MCG/MIN ALONG WITH NS AT 100NL/HR. PT WAS REPOSITIONED AND TURNED PER HOSPITAL PROTOCOL. PRN AND WOUND CARE RENDERED ORDERED. SAFETY MEASURES REMAIN IN PLACE. WILL ENDORSE TO NIGHTSHIFT RN FOR RENETTA
--- NOTE | 2019-01-25 19:10 | NUR ---
CRO NOTE RECEIVED REPORT FROM AM NURSE, PATIENT IS RESTING IN BED, ON ROOM AIR, NO S/SX OF CARDIAC OR RESPIRATORY DISTRESS, ON TELE CONTROLLED AFIB, RIVERA CATHETER IN PLACE DRAINING TEA COLORED URINE, RIGHT CHEST WALL REJI CATH WITH NS AT 100 ML/HR, TOLERATING WELL, SKIN KEPT CLEAN AND DRY, SAFETY MAINTAINED AT ALL TIMES, BED IN LOW, LOCKED POSITION, CALL LIGHT WITHIN REACH, WILL CONTINUE TO MONITOR FOR ANY CHANGES IN CONDITION.
--- NOTE | 2019-01-25 19:10 | NUR ---
ARCHITECTURAL PROJECT CAPTAIN NOTE PT ON LEVOFED DRIP 4MCG//MIN, PT TOLERATING WELL, BP BEING CLOSELY MONITORED, NO S/SX OF CARDIAC DISTRESS, WILL CONTINUE TO MONITOR FOR ANY CHANGES.
[2019-01-25] MEDS: ENOXAPARIN SODIUM 40 MG/0.4 ML DISP.SYRIN SQ SCH (21:34)
[2019-01-26] VITALS (64 sets, daily range): BP systolic 91–131; BP diastolic 38–78
--- NOTE | 2019-01-26 00:24 | NUR ---
CHALK TESTER NOTE PT TRANSFERRED TO RM 252 DUE TO PT C/O NOISE FROM VENT IN ROOM NEXT DOOR, PT RESTING COMFORTABLY IN BED, REQUESTED TO HAVE DOOR OPEN FOR EXTRA LIGHT FROM THE HALLWAY, DECLINED TO HAVE ROOM LIGHT ON. WILL CONTINUE TO MONITOR FOR SAFETY
[2019-01-26] MEDS: IV NS 0.9% 1,000 ML IV PRN ×2 (06:18→16:40)
--- NOTE | 2019-01-26 07:10 | NUR ---
RN INITIAL NOTES: Rec'd pt asleep on bed, not in any distress, A/O x 3m easily arousable. On room air, no SOB. On telemonitor, controlled Afib. Has portacath on RCW w/ NS 100cc/hr & Levophed Drip x 2mcg infusing well, no s/sx of infection/infiltration noted. Has FC draining to BSB w/ concentrated UOP. Safety precaution in place w/ bed in locked & lowest pos. Call light w/in reach. Will cont to monitor & attend pt needs.
[2019-01-26 07:18] LABS: BASOPHILS % (AUTO) 0.2 % (0.0-2.0); EOSINOPHILS % (AUTO) 0.1 % (0.0-6.0); HEMATOCRIT 26 % (39-51); HEMOGLOBIN 8.8 g/dL (13.5-17.5); LYMPHOCYTES % (AUTO) 17.1 % (20.0-44.0); MEAN CORPUSCULAR HGB CONC 34 g/dl (31.0-36.0); MEAN CORPUSCULAR VOLUME 98 fL (80-96); MONOCYTES # (AUTO) 0.7 /CMM (0.1-1.30); MONOCYTES % (AUTO) 4.1 % (2.0-12.0); NEUTROPHILS # (AUTO) 13.9 /CMM (1.8-8.9); NEUTROPHILS % (AUTO) 78.5 % (43.0-81.0); PLATELET COUNT (AUTO) 271 /CMM (150-450); RED BLOOD CELL COUNT(AUTO) 2.65 MIL/uL (4.5-6.0); WHITE BLOOD COUNT (AUTO) 17.7 K/uL (4.3-11.0)
[2019-01-26 07:32] LABS: CALCIUM, SERUM 7.7 mg/dL (8.5-10.1); CARBON DIOXIDE 21 mmol/L (21-32); CHLORIDE 106 mmol/L (98-107); CREATININE 0.9 mg/dL (0.6-1.3); GLUCOSE 90 mg/dL (74-106); MAGNESIUM 2.2 mg/dL (1.8-2.4); PHOSPHORUS 2.4 mg/dL (2.5-4.9); POTASSIUM 3.9 mmol/L (3.5-5.1); SODIUM SERUM 135 mmol/L (136-145); UREA NITROGEN, BLOOD 34 mg/dL (7-18)
--- NOTE | 2019-01-26 08:00 | NUR ---
Pt offered to be turned & repositioned but pt refused. Explained to him the importance of turning & repositioning every 2 hours to prevent bedsores. Pt still strongly refused despite of the health teaching given.
[2019-01-26] MEDS: LEVETIRACETAM (250 MG) 250 MG TABLET PO SCH ×2 (08:29→21:09)
[2019-01-26] MEDS: OSELTAMIVIR PHOSPHATE 75 MG CAPSULE PO SCH ×2 (08:29→17:24)
[2019-01-26] MEDS: FERROUS SULFATE (325 MG) 325 MG/TAB TABLET PO SCH (08:29)
[2019-01-26] MEDS: predniSONE 20 MG TABLET PO SCH (08:29)
[2019-01-26] MEDS: HYDROCODONE/APAP 5/325MG 1 EACH TABLET PO PRN (08:30)
[2019-01-26] MEDS: VANCOMYCIN 0.75 GM in IV D5W 250 ML IV SCH ×2 (08:31→20:00)
--- NOTE | 2019-01-26 08:45 | NUR ---
Pt seen & examined by Dr. Brannon.
--- NOTE | 2019-01-26 09:30 | NUR ---
Pt seen & examined by VITA Guillen w/ orders made & carried out. ASSOCIATE PRODUCT MANAGER made aware that pt seems depressed & refused to eat his breakfast.
[2019-01-26] MEDS: MEROPENEM 1 G in IV NS 0.9% 100 ML IV SCH ×2 (09:49→21:09)
--- NOTE | 2019-01-26 10:20 | NUR ---
Pt again offered to be turned/repositioned. Per pt he doesn't want to be turned as he is feeling dizzy. RN explained again the importance of turning, however, pt still refused.
[2019-01-26] MEDS: MORPHINE SULFATE INJ 2 MG/ML DISP.SYRIN IV PRN (10:50)
[2019-01-26] MEDS ORDERED: K PHOS NEUTRAL 250 MG TABLET PO ONE (11:00)
--- NOTE | 2019-01-26 12:50 | NUR ---
Report given to FLACA Palmer for RENETTA. Pt is scheduled for CT scan of the chest as ordered.
--- NOTE | 2019-01-26 12:52 | NUR ---
SWING TENDER NOTES RECEIVED REPORT FROM MARNIE THAYER FOR RENETTA.
--- NOTE | 2019-01-26 13:00 | NUR ---
STEMMER MACHINE NOTES PATIENT FINISHING LUNCH.CONSUMED ABOUT 30%. STATED HE ALWAYS NOT ABLE TO FINISH HIS MEALS. OFFERED FOR BED BATH AND CHANGE OF BEDDINGS, BUT DECLINED AT THIS TIME.
[2019-01-26] MEDS: AMIKACIN 500 MG in IV D5W 100 ML IV SCH (15:56)
[2019-01-26] MEDS: MICAFUNGIN SODIUM 100 MG in IV NS 0.9% 100 ML IV SCH (15:57)
--- NOTE | 2019-01-26 17:50 | NUR ---
FACILITY MAINTENANCE SUPERVISOR NOTES PT TAKEN DOWN FOR CT CHEST WITHOUT CONTRAST.
--- NOTE | 2019-01-26 19:13 | NUR ---
MANAGER HUMAN CAPITAL NOTES PATIENT RESTING COMFORTABLY IN BED, NOT IN ANY DISTRESS. IVF ONGOING ON RCW PORTACATH, SITE CLEAR. RIVERA CATH DRAINING TEA COLORED URINE TO GRAVITY ADEQUATE AMOUNT. REFUSE TO TURN AND PM CARE EARLIER DESPITE EXPLAINING THE IMPORTANCE. REMAINS AFIB ON HEART MONITOR WITH HR AT 60s. DENIES PAIN AND SOB. ALL NEEDS MET. NO OTHER SIGNIFICANT CHANGE IN CONDITION. ENDORSED TO CLOVER THAYER FOR RENETTA.
--- NOTE | 2019-01-26 19:40 | NUR ---
RN NOTES RECEIVED PT ASLEEP ON BED BREATHING EVEN AND UNLABORED ON ROOM AIR. AOX3 ABLE TO MAKE KNOWN NEEDS. A- FIB ON TELE MONITOR. SATURATION 98%. F/C DRAINED WITH KRISTA COLOR URINE. DRAINED VIA GRAVITY. IV SITE ON RIGHT CHEST WALL REJI CATH INTACT AND PATENT WITH GOOD BLOOD RETURN WTIH NS @ 100 ML/HR. OFF FROM PRESSORS. VSS. PT. C/O LOWER BACK PAIN, REPOSITIONED AND TURNED HELPED. KEPT PT CLEANED AND DRY. CALL LIGHT REMINDED TO USED WHEN NEEDS HELP OR ASSISTANCE.
[2019-01-26] MEDS: ENOXAPARIN SODIUM 40 MG/0.4 ML DISP.SYRIN SQ SCH (21:11)
[2019-01-27] VITALS (34 sets, daily range): BP systolic 86–122; BP diastolic 48–91
[2019-01-27 04:11] LABS: BASOPHILS % (AUTO) 0.1 % (0.0-2.0); EOSINOPHILS % (AUTO) 0.4 % (0.0-6.0); HEMATOCRIT 25 % (39-51); HEMOGLOBIN 8.5 g/dL (13.5-17.5); LYMPHOCYTES # (AUTO) 1.2 /CMM (0.8-4.8); LYMPHOCYTES % (AUTO) 9.1 % (20.0-44.0); MEAN CORPUSCULAR HGB CONC 34 g/dl (31.0-36.0); MEAN CORPUSCULAR VOLUME 98 fL (80-96); MONOCYTES # (AUTO) 0.8 /CMM (0.1-1.30); MONOCYTES % (AUTO) 6.1 % (2.0-12.0); NEUTROPHILS # (AUTO) 10.8 /CMM (1.8-8.9); NEUTROPHILS % (AUTO) 84.3 % (43.0-81.0); PLATELET COUNT (AUTO) 244 /CMM (150-450); RED BLOOD CELL COUNT(AUTO) 2.53 MIL/uL (4.5-6.0); WHITE BLOOD COUNT (AUTO) 12.8 K/uL (4.3-11.0)
[2019-01-27] MEDS: HYDROCODONE/APAP 5/325MG 1 EACH TABLET PO PRN ×2 (04:42→13:11)
[2019-01-27 04:43] LABS: CALCIUM, SERUM 7.5 mg/dL (8.5-10.1); CARBON DIOXIDE 22 mmol/L (21-32); CHLORIDE 106 mmol/L (98-107); CREATININE 0.9 mg/dL (0.6-1.3); GLUCOSE 84 mg/dL (74-106); MAGNESIUM 1.9 mg/dL (1.8-2.4); PHOSPHORUS 2.1 mg/dL (2.5-4.9); POTASSIUM 3.9 mmol/L (3.5-5.1); SODIUM SERUM 137 mmol/L (136-145); UREA NITROGEN, BLOOD 29 mg/dL (7-18)
[2019-01-27 06:09] LABS: LYMPHOCYTES % (MANUAL) 7 % (16-48); MONOCYTES % (MANUAL) 3 % (0-11.0); NEUTROPHILS % (MANUAL) 90 (42-76)
[2019-01-27] MEDS: IV NS 0.9% 1,000 ML IV PRN ×2 (06:33→18:34)
--- NOTE | 2019-01-27 07:03 | NUR ---
RN NOTES PATIENT ASLEEP WELL ON BED. NO APPARENT DISTRESS ON ROOM AIR. AFEBRILE NO SIGNIFICANT CHANGE OF CONDITION THROUGHOUT HTE SHIFT ALL IV ATB GIVEN AND TOLERATED WELL. PAIN MEDICINE ADMINISTERED ORDERED AND REMAINED EFFECTIVE. PATIENT ASSISTED TO THE COMMODE WITH BM X 1. KEPT PT CLEAN AND DRY. CONTINUE WTIH IVF ORDERED/ WILL ENDORSED CONTINUITY OF CARE TO AM NURSE.
--- NOTE | 2019-01-27 07:30 | NUR ---
RN NOTES RECEIVED PATIENT IN BED ALERT, AWAKE, ORIENTED X 4 WITH BREATHING NORMAL, EVEN AND UNLABORED. NO SOB NOTED. NO ACUTE DISTRESS NOTED. TELE MONITOR REVEALS A-FIB, HR=84. RCW PORT CATH IS PATENT AND INTACT, RUNNING IVF PER ORDER. F/C IS PATENT AND INTACT, DRAINING WITH GRAVITY. KEPT CLEAN, DRY AND COMFORTABLE. ALL NEEDS ATTENDED. SAFETY MEASURE OBSERVED. CALL LIGHT WITH IN REACH. WILL CONT TO MONITOR.
[2019-01-27] MEDS ORDERED: NEUTRA PHOS 1 POWD.PACKET PO ONE (08:00)
[2019-01-27] MEDS: VANCOMYCIN 0.75 GM in IV D5W 250 ML IV SCH ×2 (08:39→20:17)
[2019-01-27] MEDS: predniSONE 20 MG TABLET PO SCH (08:51)
[2019-01-27] MEDS: FERROUS SULFATE (325 MG) 325 MG/TAB TABLET PO SCH (08:52)
[2019-01-27] MEDS: LEVETIRACETAM (250 MG) 250 MG TABLET PO SCH ×2 (08:52→20:46)
[2019-01-27] MEDS: MEROPENEM 1 G in IV NS 0.9% 100 ML IV SCH ×2 (09:25→21:05)
[2019-01-27] MEDS: OSELTAMIVIR PHOSPHATE 75 MG CAPSULE PO SCH ×2 (09:25→16:44)
--- NOTE | 2019-01-27 11:06 | NUR ---
RN NOTES RELAYED BLOOD CULTURE RESULTS TO DAYLIN GORMAN AND DR MIGUEL. WILL CONT TO MONITOR.
--- NOTE | 2019-01-27 18:46 | NUR ---
RN NOTES PATIENT ENDORSED TO NEXT SHIFT IN STABLE CONDITION FOR CONTINUITY OF CARE. NO SIGNIFICANT CHANGES NOTED. KEPT CLEAN, DRY AND COMFORTABLE. ALL NEEDS ATTENDED. SAFETY MEASURE OBSERVED. CALL LIGHT WITH IN REACH. WILL CONT TO MONITOR.
--- NOTE | 2019-01-27 19:20 | NUR ---
RN NOTES PT IS RESTING ON BED. NO APPARENT DISTRESS. AFEBRILE. VSS. PT IS AOX3 NSR WITH PAC'S ON TELE MONITOR. IV SITE ON RCW REJI CATH REMAINED INTACT AND PATENT RUNNING WITH NS @ 100 ML/HR . F/C DRAINED WITH TEA COLOR/KRISTA COLOR URINE. KEPT PT CLEAN AND DRY. BED LOCKED AND IN LOWEST POSSIBLE POSITION. WILL CONTINUE TO MONITOR.
[2019-01-27] MEDS: ENOXAPARIN SODIUM 40 MG/0.4 ML DISP.SYRIN SQ SCH (21:07)
[2019-01-28] VITALS (33 sets, daily range): BP systolic 100–126; BP diastolic 52–89
[2019-01-28 04:50] LABS: BASOPHILS % (AUTO) 0.2 % (0.0-2.0); EOSINOPHILS % (AUTO) 0.3 % (0.0-6.0); HEMATOCRIT 27 % (39-51); HEMOGLOBIN 9.3 g/dL (13.5-17.5); LYMPHOCYTES % (AUTO) 10.4 % (20.0-44.0); MEAN CORPUSCULAR HGB CONC 35 g/dl (31.0-36.0); MEAN CORPUSCULAR VOLUME 98 fL (80-96); MONOCYTES # (AUTO) 0.6 /CMM (0.1-1.30); MONOCYTES % (AUTO) 6.2 % (2.0-12.0); NEUTROPHILS # (AUTO) 8.2 /CMM (1.8-8.9); NEUTROPHILS % (AUTO) 82.9 % (43.0-81.0); PLATELET COUNT (AUTO) 271 /CMM (150-450); RED BLOOD CELL COUNT(AUTO) 2.75 MIL/uL (4.5-6.0); WHITE BLOOD COUNT (AUTO) 9.9 K/uL (4.3-11.0)
[2019-01-28 05:14] LABS: CALCIUM, SERUM 7.6 mg/dL (8.5-10.1); CARBON DIOXIDE 23 mmol/L (21-32); CHLORIDE 107 mmol/L (98-107); CREATININE 0.8 mg/dL (0.6-1.3); GLUCOSE 97 mg/dL (74-106); PHOSPHORUS 2.2 mg/dL (2.5-4.9); POTASSIUM 3.8 mmol/L (3.5-5.1); SODIUM SERUM 137 mmol/L (136-145); UREA NITROGEN, BLOOD 29 mg/dL (7-18)
--- NOTE | 2019-01-28 07:00 | NUR ---
RN NOTES RECEIVED PT ON BED, AOX3, ON RA , NO SOB NOTED, RESPIRATION EVEN AND UNLABORED, NSR WITH PAC'S ON TELE MONITOR. RCW PORT-A -CATH SITE CLEAN, DRY AND INTACT, WITH NS AT 100CC/HR RUNNING ,RIVERA DRINING TO GRAVITY , WITH TEA COLOR/KRISTA COLOR URINE. SR UP x3, CALL LIGHT WITHIN EASY REACH, BED LOCKED AND IN LOWEST POSITION , WILL CONTINUE TO MONITOR.
--- NOTE | 2019-01-28 07:35 | NUR ---
RN NOTES PATIENT REMAINED IN THE SAME CONDITION. NO ACUTE RESPIRATORY DISTRESS. AFEBRILE. VSS. ABLE TO STAND WITH ASSIST OF ONE PERSON. NO SIGNIFICANT CHANGES KEPT PT CLEAN AND DRY. ALL DUE MEDICINE TOLERATED WELL. ENDORSED CONTINUITY OF CARE TO AM NURSE.
[2019-01-28] MEDS: VANCOMYCIN 0.75 GM in IV D5W 250 ML IV SCH ×2 (08:35→19:38)
[2019-01-28] MEDS: LEVETIRACETAM (250 MG) 250 MG TABLET PO SCH ×2 (09:03→21:29)
[2019-01-28] MEDS: MEROPENEM 1 G in IV NS 0.9% 100 ML IV SCH ×3 (09:03→20:46)
[2019-01-28] MEDS: OSELTAMIVIR PHOSPHATE 75 MG CAPSULE PO SCH ×2 (09:03→16:41)
[2019-01-28] MEDS: predniSONE 20 MG TABLET PO SCH (09:03)
[2019-01-28] MEDS: FERROUS SULFATE (325 MG) 325 MG/TAB TABLET PO SCH (09:03)
[2019-01-28] MEDS ORDERED: NEUTRA PHOS 1 POWD.PACKET PO ONE (09:30)
--- NOTE | 2019-01-28 11:45 | NUR ---
RN NOTES PT TRANSFERRED TO ROOM 310 TELE STATUS , VIA ACLS PROTOCOL, IN STABLE CONDITION WITH ALL BELONGINGS.PT'S AT THE BEDSIDE . REPORT GIVEN TO GRACIELA RN FOR CONTINUITY OF CARE .
--- NOTE | 2019-01-28 12:00 | NUR ---
TELE/RN NOTE THE PATIENT IS RECEIVED IN BED. ALERT AND ORIENTED X3. IN ROOM AIR AND DENIES SOB. RESPIRATION REGULAR AND UNLABORED. DENIES PAIN. PATIENT HAS RIGHT CHEST REJI CATH THAT IS PATENT. PATIENT IS GIVEN ORIENTATION TO THE ROOM/ UNIT AND HE VERBALIZED UNDERSTANDING. BED LOW AND LOCKED. SIDE RAILS UP X3. CALL LIGHT WITHIN REACH. WILL CONTINUE TO MONITOR.
[2019-01-28] MEDS: IV NS 0.9% 1,000 ML IV PRN (13:50)
--- NOTE | 2019-01-28 18:05 | NUR ---
TELE/RN NOTE THE PATIENT ALERT AND ORIENTED X3. IN ROOM AIR AND SATURATION IS AT 97%. DENIES SOB. RESPIRATION REGULAR AND UNLABORED. DENIES PAIN. EXTERNAL TELE BOX READING IS SR 88 WITH PAC. THE PATIENT IS IN NO APPARENT DISTRESS. RIGHT CHEST WALL REJI CATH PATENT AND NORMAL SALINE INFUSING AT 50ML/HR. NO S/S INFILTRATION NOTED. GOOD AND GENTLE SKIN CARE RENDERED. KEPT CLEAN AND COMFORTABLE. ALL NEEDS ATTENDED. WILL ENDORSE TO TUBE TEST TECHNICIAN.
--- NOTE | 2019-01-28 19:20 | NUR ---
BRIM STITCHER OPENING NOTES Received patient sleeping in bed, easily awoken. Breathing even and unlabored. Not in any distress. Right chest wall port-a-cath patent, infusing NS at 50mL/hr. Tele monitor in place, sinus rhythm 82 with PACs. Call light within easy reach. Bed in low, locked position. Will continue to monitor accordingly
--- NOTE | 2019-01-28 21:10 | NUR ---
RN NOTES Family member called and requested for protective services social worker consult regarding placement.
[2019-01-28] MEDS: ENOXAPARIN SODIUM 40 MG/0.4 ML DISP.SYRIN SQ SCH (21:31)
[2019-01-29] VITALS: BP 115/63
[2019-01-29] MEDS: MEROPENEM 1 G in IV NS 0.9% 100 ML IV SCH ×2 (04:13→13:08)
[2019-01-29 04:34] VITALS: BP 120/62
--- NOTE | 2019-01-29 06:51 | NUR ---
LEAD SYSTEMS ANALYST CLOSING NOTES Patient still sleeping in bed, easily awoken. Breathing even and unlabored. Not in any distress. Right chest wall port-a-cath patent, infusing NS at 50mL/hr. Tele monitor in place, sinus rhythm 75 with PACs. Martinez catheter in place, drained 650mL of dark colored urine. All needs attended to. All due meds given as ordered. Call light within easy reach. Bed in low, locked position. Will endorse RENETTA to oncoming RN
[2019-01-29 07:05] LABS: BASOPHILS # (AUTO) 0.1 /CMM (0.0-0.2); BASOPHILS % (AUTO) 0.6 % (0.0-2.0); EOSINOPHILS % (AUTO) 1.1 % (0.0-6.0); HEMATOCRIT 27 % (39-51); HEMOGLOBIN 9.1 g/dL (13.5-17.5); LYMPHOCYTES # (AUTO) 1.1 /CMM (0.8-4.8); LYMPHOCYTES % (AUTO) 13.3 % (20.0-44.0); MEAN CORPUSCULAR HGB CONC 34 g/dl (31.0-36.0); MEAN CORPUSCULAR VOLUME 98 fL (80-96); MONOCYTES # (AUTO) 0.6 /CMM (0.1-1.30); MONOCYTES % (AUTO) 7.3 % (2.0-12.0); NEUTROPHILS # (AUTO) 6.6 /CMM (1.8-8.9); NEUTROPHILS % (AUTO) 77.7 % (43.0-81.0); PLATELET COUNT (AUTO) 294 /CMM (150-450); RED BLOOD CELL COUNT(AUTO) 2.74 MIL/uL (4.5-6.0); WHITE BLOOD COUNT (AUTO) 8.4 K/uL (4.3-11.0)
[2019-01-29 07:30] LABS: ALANINE AMINOTRANSFERASE 207 U/L (12-78); ALKALINE PHOSPHATASE 964 U/L (46-116); ASPARTATE AMINOTRANSFERASE 155 U/L (15-37); BILIRUBIN,TOTAL 8.5 mg/dL (0.2-1.0); CALCIUM, SERUM 7.8 mg/dL (8.5-10.1); CARBON DIOXIDE 22 mmol/L (21-32); CHLORIDE 107 mmol/L (98-107); CREATININE 0.9 mg/dL (0.6-1.3); GLUCOSE 84 mg/dL (74-106); MAGNESIUM 2.1 mg/dL (1.8-2.4); PHOSPHORUS 2.6 mg/dL (2.5-4.9); POTASSIUM 3.8 mmol/L (3.5-5.1); SODIUM SERUM 137 mmol/L (136-145); TOTAL PROTEIN, SERUM 4.8 g/dL (6.4-8.2); UREA NITROGEN, BLOOD 28 mg/dL (7-18)
--- NOTE | 2019-01-29 07:46 | NUR ---
SUPERVISOR PACKING ROOM OPENING NOTES RECEIVED PATIENT ON BED ASLEEP BUT EASILY AROUSABLE. A/O X 4 AND ABLE TO MAKE NEEDS KNOWN. RESPIRATION EVEN AND NON LABORED WITH NO ACUTE RESPIRATORY DISTRESS. LUNGS CLEARED BILATERALLY. ABDOMEN SOFT AND NON DISTENDED WITH ACTIVE BOWEL SOUNDS. DENIES PAIN AND DISCOMFORT AT THIS TIME. SKIN WARM TO TOUCH, INTACT AND DRY. RIGHT CHEST WALL REJI CATH PRESENT WITH NO S/SX OF INFECTION, ON NS FLUID RUNNING AT 50 ML/HR. TELE MONITOR OF SINUS RHYTHM WITH PAC AT 72. ALL CONCERNS ATTENDED. PLACED CALL LIGHT WITHIN REACH TO ENSURE SAFETY AT ALL TIMES.
[2019-01-29 07:48] LABS: ALBUMIN 1.3 g/dL (3.4-5.0)
[2019-01-29 08:00] VITALS: BP 108/58
--- NOTE | 2019-01-29 08:00 | NUR ---
TELE/RN RECEIVED CALL FROM LAB, RELAYED PATIENT'S ALBUMIN 1.3 CL. MD NOTIFIED.
[2019-01-29] MEDS: VANCOMYCIN 0.75 GM in IV D5W 250 ML IV SCH (08:17)
[2019-01-29] MEDS: predniSONE 20 MG TABLET PO SCH (08:17)
[2019-01-29] MEDS: LEVETIRACETAM (250 MG) 250 MG TABLET PO SCH ×2 (08:17→21:11)
[2019-01-29] MEDS: OSELTAMIVIR PHOSPHATE 75 MG CAPSULE PO SCH ×2 (08:17→16:28)
[2019-01-29] MEDS: FERROUS SULFATE (325 MG) 325 MG/TAB TABLET PO SCH (08:17)
[2019-01-29] MEDS: ALBUMIN 25% 25 GM in PREMIX 1 EA IV SCH ×3 (08:50→21:01)
[2019-01-29] MEDS: IV NS 0.9% 1,000 ML IV PRN (13:08)
[2019-01-29] MEDS ORDERED: CEFTRIAXONE 1 G VIAL IV SCH (15:30)
[2019-01-29 16:00] VITALS: BP 116/56
[2019-01-29] MEDS: ENSURE ENLIVE 237 ML LIQUID (VANILLA) PO SCH (17:24)
[2019-01-29] MEDS: CEFTRIAXONE 1 G in IV D5W 50 ML IV SCH (17:25)
--- NOTE | 2019-01-29 18:34 | NUR ---
M/S RN PATIENT SPUTUM NOT COLLECTED PATIENT STATED HE DOESN'T HAVE ANYTHING ON HIS THROAT RIGHT NOW. WILL CALL NURSE IF HE FEELS HE HAS SPUTUM ON HIS THROAT. EXPLAINED REASON FOR TREATMENT WITH VERBAL UNDERSTANDING.
--- NOTE | 2019-01-29 18:55 | NUR ---
M/S RN CLOSING NOTES PATIENT ALERT AND ORIENTED X 4 AND ABLE TO MAKE NEEDS KNOWN. RESPIRATION EVEN AND NON LABORED WITH NO ACUTE RESPIRATORY DISTRESS. ABDOMEN SOFT AND NON DISTENDED WITH ACTIVE BOWEL SOUNDS TO ALL QUADRANTS. SKIN WARM TO TOUCH AND DRY. PATIENT DENIES PAIN AND DISCOMFORT. IV RUNNING AT 50 ML/HR WITH NS AT RIGHT CHEST WALL REJI CATH, SITE WITH NO S/SX OF INFECTION NOTED. PATIENT WITH RIVERA CATHETER AND ON STRCT INTAKE AND OUTPUT. ALL CONCERNS ATTENDED. PLACED CALL LIGHT WITHIN REACH FOR SAFETY. ENDORSED PATIENT'S CONDITION TO NEXT SHIFT.
--- NOTE | 2019-01-29 19:00 | NUR ---
MS RN RECEIVE PT IN BED. A/O X 4. RESPIRATIONS EVEN AND UNLABORED, NO SOB NOTED, NO DISTRESS, SAFETY MEASURES IN PLACE. WILL CONTINUE TO MONITOR.
[2019-01-29 20:00] VITALS: BP 117/67
[2019-01-29] MEDS: ENOXAPARIN SODIUM 40 MG/0.4 ML DISP.SYRIN SQ SCH (21:12)
[2019-01-29 21:20] VITALS: BP 117/67
[2019-01-30] MEDS: ALBUMIN 25% 25 GM in PREMIX 1 EA IV SCH (01:09)
--- NOTE | 2019-01-30 06:03 | NUR ---
MS RN CLOSING NOTE PT IN BED ASLEEP EASILY AWAKEN, RESPIRATIONS EVEN AND UNLABORED. NOT IN DISTRESS, STABLE. NEEDS ATTENDED AND ANTICIPATED, KEPT DRY, CLEAN AND COMFORT. NO COMPLAIN OF PAIN. OFFLOAD HEELS AND ELBOWS AT ALL TIMES. REPOSITIONED EVERY 2 HOURS, AM CARE RENDERED. SAFETY MEASURES IN PLACE, BED IN LOW LOCKED POSITION, CALL LIGHT WITHIN EASY REACH. ENDORSE TO NEXT SHIFT CONTINUITY OF CARE.
--- NOTE | 2019-01-30 07:49 | NUR ---
M/S RN OPENING NOTES RECEIVED PATIENT ON BED LYING SUPINE; A/O X 4 AND ABLE TO MAKE NEEDS KNOWN. RESPIRATION EVEN AND NON LABORED WITH NO ACUTE RESPIRATORY DISTRESS. ABDOMEN SOFT AND NON DISTENDED WITH ACTIVE SOUNDS TO ALL QUADRANTS. PATIENT DENIES PAIN AND DISCOMFORT UPON ASSESSMENT. SKIN WARM TO TOUCH. PRESENCE OF REJI CATH AT RIGHT CHEST WALL WITH SO S/SX OF INFECTION. IV RUNNING OF NS AT 50 ML/HR. RIVERA CATHETER PRESENT AND IN PLACE. ALL CARE CONCERNS ATTENDED. PLACED CALL LIGHT WITHIN REACH TO ENSURE SAFETY. WILL CONTINUE TO EVALUATE CARE.
[2019-01-30 07:55] LABS: BASOPHILS % (AUTO) 0.1 % (0.0-2.0); EOSINOPHILS % (AUTO) 2.5 % (0.0-6.0); LYMPHOCYTES # (AUTO) 0.9 /CMM (0.8-4.8); LYMPHOCYTES % (AUTO) 13.2 % (20.0-44.0); MEAN CORPUSCULAR HGB CONC 35 g/dl (31.0-36.0); MEAN CORPUSCULAR VOLUME 98 fL (80-96); MONOCYTES # (AUTO) 0.4 /CMM (0.1-1.30); MONOCYTES % (AUTO) 6.7 % (2.0-12.0); NEUTROPHILS % (AUTO) 77.5 % (43.0-81.0); PLATELET COUNT (AUTO) 217 /CMM (150-450); WHITE BLOOD COUNT (AUTO) 6.5 K/uL (4.3-11.0)
[2019-01-30 08:00] VITALS: BP 108/51
[2019-01-30 08:03] LABS: RED BLOOD CELL COUNT(AUTO) 1.98 MIL/uL (4.5-6.0)
[2019-01-30 08:05] LABS: HEMATOCRIT 19 % (39-51); HEMOGLOBIN 6.8 g/dL (13.5-17.5)
--- NOTE | 2019-01-30 08:05 | NUR ---
M/S RN CRITICAL LABS RECEIVED FROM [place] AT LABORATORY WITH [facility] AT 6.8. DAYLIN MADE AWARE WITH NEW ORDER TO REPEAT STAT CBC TODAY. ORDER VERIFIED, NOTED AND CARRIED OUT. PATIENT NOTIFIED.
[2019-01-30 08:18] LABS: ALANINE AMINOTRANSFERASE 162 U/L (12-78); ALBUMIN 2.2 g/dL (3.4-5.0); ALKALINE PHOSPHATASE 703 U/L (46-116); ASPARTATE AMINOTRANSFERASE 132 U/L (15-37); BILIRUBIN,TOTAL 7.6 mg/dL (0.2-1.0); CALCIUM, SERUM 7.9 mg/dL (8.5-10.1); CARBON DIOXIDE 23 mmol/L (21-32); CHLORIDE 109 mmol/L (98-107); CREATININE 0.7 mg/dL (0.6-1.3); GLUCOSE 88 mg/dL (74-106); POTASSIUM 3.4 mmol/L (3.5-5.1); SODIUM SERUM 140 mmol/L (136-145); TOTAL PROTEIN, SERUM 4.6 g/dL (6.4-8.2); UREA NITROGEN, BLOOD 24 mg/dL (7-18)
[2019-01-30] MEDS: predniSONE 20 MG TABLET PO SCH (08:35)
[2019-01-30] MEDS: OSELTAMIVIR PHOSPHATE 75 MG CAPSULE PO SCH (08:36)
[2019-01-30] MEDS: FERROUS SULFATE (325 MG) 325 MG/TAB TABLET PO SCH (08:36)
[2019-01-30] MEDS: LEVETIRACETAM (250 MG) 250 MG TABLET PO SCH ×2 (08:36→20:56)
[2019-01-30] MEDS: ENSURE ENLIVE 237 ML LIQUID (VANILLA) PO SCH ×2 (08:37→17:12)
[2019-01-30 08:51] LABS: BASOPHILS % (AUTO) 0.3 % (0.0-2.0); EOSINOPHILS % (AUTO) 2.5 % (0.0-6.0); HEMATOCRIT 23 % (39-51); HEMOGLOBIN 7.7 g/dL (13.5-17.5); LYMPHOCYTES # (AUTO) 1.4 /CMM (0.8-4.8); LYMPHOCYTES % (AUTO) 19.8 % (20.0-44.0); MEAN CORPUSCULAR HGB CONC 34 g/dl (31.0-36.0); MEAN CORPUSCULAR VOLUME 98 fL (80-96); MONOCYTES # (AUTO) 0.5 /CMM (0.1-1.30); MONOCYTES % (AUTO) 6.5 % (2.0-12.0); NEUTROPHILS # (AUTO) 5.1 /CMM (1.8-8.9); NEUTROPHILS % (AUTO) 70.9 % (43.0-81.0); PLATELET COUNT (AUTO) 240 /CMM (150-450); WHITE BLOOD COUNT (AUTO) 7.3 K/uL (4.3-11.0)
[2019-01-30 09:17] LABS: EOSINOPHILS % (MANUAL) 1 % (0-4); LYMPHOCYTES % (MANUAL) 12 % (16-48); MONOCYTES % (MANUAL) 3 % (0-11.0); NEUTROPHILS % (MANUAL) 84 (42-76)
[2019-01-30] MEDS ORDERED: POTASSIUM CHLORIDE 20 MEQ TAB.PRT.SR PO SCH (09:30)
[2019-01-30] MEDS: IV NS 0.9% 1,000 ML IV PRN (12:10)
[2019-01-30] MEDS: CEFTRIAXONE 1 G in IV D5W 50 ML IV SCH (16:09)
--- NOTE | 2019-01-30 16:13 | NUR ---
M/S RN PATIENT FAMILY ON BEDSIDE, SONDRA (NIECE) DECIDED TO CHANGE CODE FROM FULL CODE TO DNR/DNI. DAYLIN NOTIFIED ABOUT THE CASE. POLST PLACED IN THE CHART COMPLETED AND SIGNED BY SONDRA.
--- NOTE | 2019-01-30 16:20 | NUR ---
M/S RN DONOVAN LOVE STATED PATIENT'S FAMILY REFUSED VITAL SIGNS TO BE TAKEN. EXPLAINED VITAL SIGNS ROUTINE WITH RISK AND BENEFITS RELATED TO PATIENT'S CONDITION. STILL REFUSED SINCE PATIENT LOOKS COMFORTABLE WITH NO CHANGE OF CONDITION SINCE THEY ARRIVED. WILL CONTINUE TO MONITOR PATIENT' CARE.
--- NOTE | 2019-01-30 18:31 | NUR ---
M/S RN CLOSING NOTES PATIENT A/O X 4 VERBALLY RESPONSIVE AND ABLE TO COMMUNICATE NEEDS. RESPIRATION EVEN AND NON LABORED WITH NO ACUTE RESPIRATORY DISTRESS, LUNGS REMAINED CLEAR BILATERALLY, NO OXYGEN NEEDED DURING THE SHIFT. ABDOMEN SOFT AND NON DISTENDED WITH ACTIVE SOUNDS TO ALL QUADRANTS, BMX1 TODAY WITH BLACK SOFT SMALL STOOL. PATIENT DENIES PAIN AND DISCOMFORT UPON ASSESSMENT. SKIN WARM TO TOUCH, INTACT AND DRY. BOTH HEELS AND ELBOW ON OFF LOAD AT ALL TIMES. BLE WITH +4 PITTING EDEMA, ELEVATED WITH PILLOWS BUT PATIENT ALWAYS TAKES IT OFF DUE TO DISCOMFORT WITH IT. LOWER SIDE OF BED ELEVATED INSTEAD STATED MORE COMFORTABLE. RIVERA CATHETER IN PLACE WITH URINE OUTPUT OF CLEAR, TEA COLOR URINE. PRESENCE OF REJI CATH AT RIGHT CHEST WALL WITH SO S/SX OF INFECTION. IV RUNNING OF NS AT 50 ML/HR. RIVERA CATHETER PRESENT AND IN PLACE. ALL CARE CONCERNS ATTENDED. PLACED CALL LIGHT WITHIN REACH TO ENSURE SAFETY. ENDORSED PATIENT CONDITION TO NEXT SHIFT.
--- NOTE | 2019-01-30 19:18 | NUR ---
MS RN RECEIVE PT IN BED AWAKE WATCHING TV. A/O X 4. RESPIRATIONS EVEN AND UNLABORED, NO SOB NOTED, NO DISTRESS, SAFETY MEASURES IN PLACE. WILL CONTINUE TO MONITOR.
[2019-01-30 20:00] VITALS: BP 102/59
[2019-01-30] MEDS: ENOXAPARIN SODIUM 40 MG/0.4 ML DISP.SYRIN SQ SCH (21:00)
[2019-01-31] MEDS: MORPHINE SULFATE INJ 2 MG/ML DISP.SYRIN IV PRN (02:12)
[2019-01-31] MEDS: IV NS 0.9% 1,000 ML IV PRN (05:12)
--- NOTE | 2019-01-31 06:06 | NUR ---
MS RN CLOSING NOTE IN BED ASLEEP COMFORTABLY AND EASILY AWAKEN, STABLE. RESPIRATIONS EVEN AND UNLABORED. NURSING CARE RENDERED. NEEDS ATTENDED AND ANTICIPATED, KEPT DRY, CLEAN AND COMFORT. NO COMPLAIN OF PAIN. OFFLOAD HEELS AND ELBOWS AT ALL TIMES. REPOSITIONED EVERY 2 HOURS, SAFETY MEASURES IN PLACE, BED IN LOW LOCKED POSITION, CALL LIGHT WITHIN EASY REACH. ENDORSE TO NEXT SHIFT CONTINUITY OF CARE.
[2019-01-31 06:21] LABS: BASOPHILS % (AUTO) 0.3 % (0.0-2.0); EOSINOPHILS % (AUTO) 1.4 % (0.0-6.0); HEMATOCRIT 22 % (39-51); HEMOGLOBIN 7.5 g/dL (13.5-17.5); LYMPHOCYTES # (AUTO) 1.1 /CMM (0.8-4.8); LYMPHOCYTES % (AUTO) 16.3 % (20.0-44.0); MEAN CORPUSCULAR HGB CONC 34 g/dl (31.0-36.0); MEAN CORPUSCULAR VOLUME 98 fL (80-96); MONOCYTES # (AUTO) 0.5 /CMM (0.1-1.30); NEUTROPHILS # (AUTO) 5.1 /CMM (1.8-8.9); PLATELET COUNT (AUTO) 243 /CMM (150-450); RED BLOOD CELL COUNT(AUTO) 2.23 MIL/uL (4.5-6.0); WHITE BLOOD COUNT (AUTO) 6.8 K/uL (4.3-11.0)
[2019-01-31 06:40] LABS: ALANINE AMINOTRANSFERASE 175 U/L (12-78); ALBUMIN 1.9 g/dL (3.4-5.0); ALKALINE PHOSPHATASE 772 U/L (46-116); ASPARTATE AMINOTRANSFERASE 139 U/L (15-37); BILIRUBIN,TOTAL 7.6 mg/dL (0.2-1.0); CALCIUM, SERUM 7.6 mg/dL (8.5-10.1); CARBON DIOXIDE 25 mmol/L (21-32); CHLORIDE 111 mmol/L (98-107); CREATININE 0.7 mg/dL (0.6-1.3); GLUCOSE 90 mg/dL (74-106); POTASSIUM 4.1 mmol/L (3.5-5.1); SODIUM SERUM 141 mmol/L (136-145); TOTAL PROTEIN, SERUM 4.6 g/dL (6.4-8.2); UREA NITROGEN, BLOOD 23 mg/dL (7-18)
--- NOTE | 2019-01-31 07:30 | NUR ---
MSRN. PT RECEIVED ASLEEP IN BED. PT REQUESTING MORE SLEEP AND DECLINED REPOSITIONING.
[2019-01-31 08:00] VITALS: BP 112/67
--- NOTE | 2019-01-31 08:15 | NUR ---
PT A&0X3, AWAKE AND RESTING IN BED, PT REPOSITIONED AND SET-UP FOR BREAKFAST. PT TOLERATING ROOM AIR WITHOUT DISTRESS AND DENIES PAIN AT THIS TIME. PT WITH RCW REJI CATH WITH NS PER RX. PT WITH BI LAT L.EXT EDEMA +3. PT WITH MULTIPLE COMPLAINTS AND TEARS R/T TO EXCESSIVE CALL WEEKS WAIT TIMES OVERNIGHT AND REQUESTING TO SPEAK TO OUTER DIAMETER GRINDER. PT RESPONSIVE TO REASSURANCE AND RAPPORT BUILDING. PT BED IN LOWEST LOCKED POSITION WITH HANDRIALSX3 AND CALL WEEKS WITHIN REACH. WILL CONTINUE POC.
[2019-01-31] MEDS: ENSURE ENLIVE 237 ML LIQUID (VANILLA) PO SCH ×2 (09:00→17:18)
[2019-01-31] MEDS: LEVETIRACETAM (250 MG) 250 MG TABLET PO SCH ×2 (09:39→21:59)
[2019-01-31] MEDS: FERROUS SULFATE (325 MG) 325 MG/TAB TABLET PO SCH (09:39)
[2019-01-31] MEDS: predniSONE 20 MG TABLET PO SCH (09:39)
--- NOTE | 2019-01-31 10:06 | NUR ---
COMPLETE BED BATH AND SKIN CARE COMPLETED.
--- NOTE | 2019-01-31 11:00 | NUR ---
ORIGINAL POSLT SIGNED BY ALL PARTIES, COPY PLACED IN CHART AND ORIGINAL WITH FAMILY.
[2019-01-31 16:00] VITALS: BP 118/56
[2019-01-31] MEDS: CEFTRIAXONE 1 G in IV D5W 50 ML IV SCH (17:24)
--- NOTE | 2019-01-31 18:09 | NUR ---
MSRN PT REMAINS A&0X3, RESTING IN BED. PT TOLERATING ROOM AIR WITHOUT DISTRESS AND DENIES PAIN AT THIS TIME. PT WITH RCW REJI CATH WITH NS PER RX. PT WITH BI LAT L.EXT EDEMA +3. PT WITH RIVERA INTACT AND OPERATIONAL DRAINING KRISTA YELLOW URINE AND INTERMITTENT CLOUDINESS. PT OFFLOADED AND REPOSTIONED Q2HR OR SOONER. PT BED IN LOWEST LOCKED POSITION WITH HANDRIALSX3 AND CALL WEEKS WITHIN REACH. WILL ENDORSE TO NIGHT NURSE AT BEDSIDE FOR RENETTA.
--- NOTE | 2019-01-31 19:20 | NUR ---
RN OPEN NOTES RECEIVED PATIENT AWAKE IN BED. A/OX3. NO SIGNS OF DISTRESS OR DISCOMFORT. BREATHING EVEN AND UNLABORED. HAS RCW PORTACATH INTACT WITH NS INFUSING. HAS F/C INTACT WITH CLOUDY KRISTA YELLOW FLUID DRAINING. BED IN LOW LOCKED POSITION WITH SIDE RAILS X3. CALL LIGHT WITHIN REACH. WILL CONTINUE TO MONITOR.
[2019-01-31 20:54] VITALS: BP 111/56
[2019-01-31] MEDS: ENOXAPARIN SODIUM 40 MG/0.4 ML DISP.SYRIN SQ SCH (22:05)
[2019-02-01] MEDS: IV NS 0.9% 1,000 ML IV PRN (03:11)
[2019-02-01 07:15] LABS: BASOPHILS # (AUTO) 0.1 /CMM (0.0-0.2); BASOPHILS % (AUTO) 0.8 % (0.0-2.0); EOSINOPHILS % (AUTO) 0.8 % (0.0-6.0); HEMATOCRIT 26 % (39-51); HEMOGLOBIN 8.8 g/dL (13.5-17.5); LYMPHOCYTES # (AUTO) 1.4 /CMM (0.8-4.8); LYMPHOCYTES % (AUTO) 18.3 % (20.0-44.0); MEAN CORPUSCULAR HGB CONC 34 g/dl (31.0-36.0); MEAN CORPUSCULAR VOLUME 100 fL (80-96); MONOCYTES # (AUTO) 0.4 /CMM (0.1-1.30); MONOCYTES % (AUTO) 5.4 % (2.0-12.0); NEUTROPHILS # (AUTO) 5.5 /CMM (1.8-8.9); NEUTROPHILS % (AUTO) 74.7 % (43.0-81.0); PLATELET COUNT (AUTO) 314 /CMM (150-450); RED BLOOD CELL COUNT(AUTO) 2.63 MIL/uL (4.5-6.0); WHITE BLOOD COUNT (AUTO) 7.4 K/uL (4.3-11.0)
--- NOTE | 2019-02-01 07:27 | NUR ---
RN CLOSING NOTES PATIENT RESTING IN BED. A/OX3. NO SIGNS OF DISTRESS OR DISCOMFORT. BREATHING EVEN AND UNLABORED. HAS RCW PORTACATH INTACT WITH NS INFUSING. HAS F/C INTACT WITH CLOUDY KRISTA YELLOW FLUID DRAINING. ALL NEEDS MET. NO SIGNIFICANT CHANGES THROUGH THE NIGHT. BED IN LOW LOCKED POSITION WITH SIDE RAILS X3. CALL LIGHT WITHIN REACH. ENDORSED TO AM SHIFT FOR RENETTA.
[2019-02-01 07:33] LABS: CALCIUM, SERUM 7.8 mg/dL (8.5-10.1); CARBON DIOXIDE 23 mmol/L (21-32); CHLORIDE 106 mmol/L (98-107); CREATININE 0.7 mg/dL (0.6-1.3); GLUCOSE 99 mg/dL (74-106); POTASSIUM 3.6 mmol/L (3.5-5.1); SODIUM SERUM 139 mmol/L (136-145); UREA NITROGEN, BLOOD 24 mg/dL (7-18)
[2019-02-01 08:00] VITALS: BP 110/59
[2019-02-01] MEDS: predniSONE 20 MG TABLET PO SCH (08:29)
[2019-02-01] MEDS: FERROUS SULFATE (325 MG) 325 MG/TAB TABLET PO SCH (08:29)
[2019-02-01] MEDS: HYDROCODONE/APAP 5/325MG 1 EACH TABLET PO PRN ×2 (08:30→12:05)
[2019-02-01] MEDS: LEVETIRACETAM (250 MG) 250 MG TABLET PO SCH (08:31)
[2019-02-01] MEDS: ENSURE ENLIVE 237 ML LIQUID (VANILLA) PO SCH (08:33)
--- NOTE | 2019-02-01 08:34 | NUR ---
MS/RN Medications Morning medications adminsitered as ordered, with norco 5/325mg for generalized body pain. Will monitor effectiveness of medication.
[2019-02-01] MEDS ORDERED: CEPH-570 PO (11:44)
--- NOTE | 2019-02-01 12:46 | NUR ---
MS/RN Exit care Exit care prepared, chart copied ready for discharge this afternoon to board and care with hospice. Dr Doe will be admitting MD at facility.
[2019-02-01] MEDS ORDERED: MORPHINE SULFATE SOLN CONCENTRATED 20 MG/ML PO STA (14:04)
--- NOTE | 2019-02-01 14:15 | NUR ---
MS/independent contractor Patient discharged in stable condition. Name band and hinkle needle removed from portacath, pressure dressing applied. Exit care signed by patient's and niece. All questions and concerns addressed prior to leaving. Informed that Dr Doe had been made aware about request for medications to be administered once at the facility. Report given to paramedics.
== END 2019-02-01 14:25 | disposition hospice, home (50) | DRG 871 ==
LOC: ER 15:33 → ICU 17:08 → TELE 01-28 11:50 → MED 01-29 10:16
PROVIDERS: ATTEND Nurse Practitioner Acute Care
DX: A41.9 Sepsis, unspecified organism (principal); R65.21 Severe sepsis with septic shock; E43 Unspecified severe protein-calorie malnutrition; N17.0 Acute kidney failure with tubular necrosis; E87.1 Hypo-osmolality and hyponatremia; C78.7 Secondary malignant neoplasm of liver and intrahepatic bile duct; R64 Cachexia; J90 Pleural effusion, not elsewhere classified; E78.5 Hyperlipidemia, unspecified; K21.9 Gastro-esophageal reflux disease without esophagitis; C43.9 Malignant melanoma of skin, unspecified; E83.39 Other disorders of phosphorus metabolism; I50.9 Heart failure, unspecified; I11.0 Hypertensive heart disease with heart failure; D64.9 Anemia, unspecified; G40.909 Epilepsy, unspecified, not intractable, without status epilepticus; R91.1 Solitary pulmonary nodule; Z68.22 Body mass index [BMI] 22.0-22.9, adult; R74.0 Nonspecific elevation of levels of transaminase and lactic acid dehydrogenase [LDH]; Z98.890 Other specified postprocedural states; W06.XXXA Fall from bed, initial encounter; Y93.9 Activity, unspecified; Y92.009 Unspecified place in unspecified non-institutional (private) residence as the place of occurrence of the external cause
CPT/HCPCS: 36415; 71045-TC; 71250-TC; 76700-TC; 80048-TC; 80053-TC; 80061-TC; 80076-TC; 80150; 80202-TC; 81000-TC; 82533; 83605-TC; 83735-TC; 83880; 84100-TC; 84443-TC; 84484-TC; 85025-TC; 85730-TC; 87040-TC; 87081-TC; 87086-TC; 87186-TC; 87400; 93307-TC; 97110-TC; 97116-TC; 97530-TC; A4216; G0378; J0278; J0696; J1650; J2185; J2248; J2270; J2930; J3370; J7030; J7060; P9047